=== PATIENT | male | born 1960 | race Caucasian/White ===

== ENCOUNTER 2019-03-10 22:02 | Inpatient (IN) | payer OTHER ==
[2019-03-10] MEDS ORDERED: Acetaminophen 650 MG Suppository PR PRN (23:28)
[2019-03-10] MEDS ORDERED: Ondansetron PF 4 MG/2 ML Vial IVP PRN (23:28)
[2019-03-10] MEDS ORDERED: Sodium Chloride 0.9% 1,000 ML IV SCH (23:30)
[2019-03-10 23:33] LABS: Actual Bicarbonate (HCO3a) 18.8 mEq/L (22-28); Base Excess (BEa) -5.6 mEq/L (-2.0 to +3.0); CO2 Tension 32.6 mmHg (35.0-45.0); Hemoglobin (Hb) 9.8 g/dL (14.0-18.0); O2 Tension (PaO2) 87.7 mmHg (80.0-100.0); pH, Arterial 7.38 (7.35-7.45)
[2019-03-10 23:34] LABS: Calcium, Ionized 1.25 mmol/L (1.12-1.30); Potassium - ABG Lab 3.08 mmol/L (3.70-5.30); Puncture Site ALINE
[2019-03-10] MEDS ORDERED: Lorazepam 2 MG/ML VIAL SLOW IVP PRN (23:36)
--- NOTE | 2019-03-10 23:47 | PDOC.EVN ---
Event Note - Event Note Event Note: [id number] H&P dictated
[2019-03-11] MEDS ORDERED: Cefepime 2 GM in Sodium Chloride 0.9% 100 ML IVPB SCH (00:15)
[2019-03-11] MEDS ORDERED: Vancomycin HCl 1 GM in Premix Bag 1 BAG IVPB SCH (00:30)
[2019-03-11] MEDS ORDERED: fentaNYL Citrate/PF 2,000 MCG in Sodium Chloride 0.9% 60 ML IV SCH (00:50)
[2019-03-11] MEDS ORDERED: Morphine 2 MG/ML SYRINGE SLOW IVP PRN (00:50)
[2019-03-11] MEDS ORDERED: Lorazepam 2 MG/ML VIAL SLOW IVP PRN (00:50)
[2019-03-11] MEDS ORDERED: Fentanyl BOLUS 250 ML IVPB PRN (00:50)
[2019-03-11] MEDS ORDERED: Propofol BOLUS 1,000 MG/100 ML VIAL IV PRN (00:50)
[2019-03-11] MEDS ORDERED: Propofol 1,000 MG/100 ML VIAL IV PRN (00:50)
--- NOTE | 2019-03-11 01:37 | HP ---
CHIEF COMPLAINT: Seizures and altered mental status. HISTORY OF PRESENT ILLNESS: Mr. 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 Today, the patient developed seizures, for which he was given Ativan and Dilantin and was intubated for airway protection. Requested to transfer the patient to our facility for further management. Reviewing the records, the patient's blood cultures growing E coli, the patient has received 4 units of packed RBCs, the latest hemoglobin is 9.7. WBC count today is 15.7, platelets 645. INR is 1.1. Glucose is 230 and BUN is 11, creatinine 0.6. CT of the head showed no acute finding. Also, blood cultures growing MSSA. No further history can be obtained due to the patient's underlying medical condition. PAST MEDICAL HISTORY: Limited. The only thing I can find in the records is the patient has a history of CVA. PAST SURGICAL HISTORY: Unknown. FAMILY HISTORY: Unknown. CURRENT MEDICATIONS: Please see home medication reconciliation form for updated medications. SOCIAL HISTORY: Unknown. ALLERGIES: UNKNOWN. REVIEW OF SYSTEMS: Cannot obtain. The patient currently is intubated on the vent, unresponsive. PHYSICAL EXAMINATION: GENERAL: The patient is intubated, not responding. HEAD: Normocephalic, atraumatic. NECK: Supple. No JVD. CHEST: Fair bilateral air entry. HEART: S1, S2 regular. ABDOMEN: Soft. Bowel sounds present. NEUROLOGIC: The patient is not responding, not moving his right side, which is ?old. PSYCHIATRIC: Unable to assess. EXTREMITIES: No clubbing, or cyanosis. LABORATORY DATA: Labs as mentioned above in the history of present illness. CT of the brain, as mentioned above in the history of present illness. ASSESSMENT: 1. Seizures, new onset. 2. Acute respiratory failure, the patient was intubated for airway protection. 3. Gram-negative bacteremia, Escherichia coli in the blood. 4. Methicillin-sensitive Staphylococcus aureus in the blood. 5. Hyperglycemia. PLAN: 1. Admit to ICU. 2. Keep n.p.o. 3. Continue full ventilator support. 4. We will start the patient on antiseizure medication, the patient was loaded with Dilantin at [place]. 5. IV fluids. 6. We will start IV antibiotics to cover for E coli and MSSA. 7. Start the patient on IV proton pump inhibitor. The patient was admitted with a hemoglobin of 4, etiology is not clear. 8. Stool for occult blood. 9. I would consider getting a CT of the abdomen to rule out pathology and cause of anemia? 10. To consult Pulmonary, Neurology, and possible GI in a.m. for further management. 11. Deep venous thrombosis prophylaxis, SCDs. 12. Gastrointestinal prophylaxis. IV proton pump inhibitor. 13. Expected length of stay 3 midnights or more. Job ID: [id number]
[2019-03-11 02:03] LABS: Bilirubin Negative (Negative); Blood, Urine 2+ (Negative); Clarity Turbid (Clear); Glucose, Urine (Dipstick) Normal (Negative); Leukocyte 75 Leu/uL (Negative); Mucous/LPF Rare LPF (<2+); Nitrite Negative (Negative); Protein, Urine (Dipstick) 70 mg/dL (Neg-Trace); RBC/HPF Greater than 50 HPF (0-3); Squamous Epithelial 0-3 HPF (0-3); Urobilinogen Normal mg/dL (Less than 2)
[2019-03-11 02:06] LABS: Bacteria/HPF 1+ HPF (None Seen)
[2019-03-11 06:40] LABS: #Lymphocytes 0.8 thou/uL (1.20-3.40); #Monocytes 0.8 thou/uL (0.11-0.59); #Neutrophils 15.6 thou/uL (1.40-6.50); %Lymphocytes 4.5 % (21.0-51.0); %Monocytes 4.7 % (0.0-10.0); %Neutrophils 90.7 % (42.0-75.0); Anisocytosis SLIGHT = 6-15 cells (100X) (0-5/hpf); Hemoglobin 8.9 g/dL (14.0-18.0); Hypochromia SLIGHT = 6-15 cells (100X) (0-5/hpf); MDiff Complete? YES; Mean Corpuscular HGB CONC 30.2 g/dL (32.0-36.0); Mean Corpuscular Hemoglobin 22.9 pg (27.0-31.0); Mean Corpuscular Volume 75.8 fL (78.0-98.0); Mean Platelet Volume 7.5 fL (7.4-10.4); Microcytosis SLIGHT = 6-15 cells (100X) (0-5/hpf); Platelet Count 595 thou/uL (130-400); Platelet Morphology Comment Appears Increased; RBC Distribution Width 23.8 % (11.5-14.5); White Blood Cell (WBC) Count 17.2 thou/uL (4.8-10.8)
[2019-03-11 06:42] LABS: ALT (SGPT) 12 U/L (8-55); AST (SGOT) 13 U/L (5-34); Albumin 3.1 g/dL (3.5-5.0); Alkaline Phosphatase 88 U/L (40-150); Anion Gap 12 mmol/L (10-20); BUN (Urea Nitrogen) 9 mg/dL (8.4-25.7); Bilirubin, Total 0.7 mg/dL (0.2-1.2); Calc. Creatinine Clearance 120 mL/min (70-130); Carbon Dioxide 22 mmol/L (22-29); Chloride 100 mmol/L (98-107); Estimated GFR-MDRD Greater than 90; Glucose 112 mg/dL (70-105); Protein, Total 6.1 g/dL (6.0-8.3); Sodium 131 mmol/L (136-145)
[2019-03-11 06:45] LABS: Potassium 2.9 mmol/L (3.5-5.1)
[2019-03-11] MEDS ORDERED: CCU Electrolyte Replacement 1 EACH FS ONE (06:51)
[2019-03-11 06:54] LABS: Actual Bicarbonate (HCO3a) 19.6 mEq/L (22-28); Base Excess (BEa) -2.9 mEq/L (-2.0 to +3.0); CO2 Tension 26.8 mmHg (35.0-45.0); Calcium, Ionized 1.24 mmol/L (1.12-1.30); Carboxyhemoglobin (COHb) 0.9 gm% (0.0-3.0); Hemoglobin (Hb) 9.6 g/dL (14.0-18.0); O2 Tension (PaO2) 160.1 mmHg (80.0-100.0); Potassium - ABG Lab 3.05 mmol/L (3.70-5.30); pH, Arterial 7.48 (7.35-7.45)
[2019-03-11] MEDS ORDERED: Potassium Phosphate 15 MMOL in Sodium Chloride 0.9% 250 ML 250 ML IV PRN (06:54)
[2019-03-11] MEDS ORDERED: Magnesium Oxide 400 MG TAB PO PRN ×2 (06:54)
[2019-03-11] MEDS ORDERED: Potassium Chloride 20 MEQ TAB PO PRN (06:54)
[2019-03-11] MEDS ORDERED: Potassium Phosphate 9 MMOL in Sodium Chloride 0.9% 100 ML IVPB PRN (06:54)
[2019-03-11] MEDS ORDERED: Potassium Chloride 40 MEQ in Sodium Chloride 0.9% 250 ML 250 ML IVPB PRN (06:54)
[2019-03-11] MEDS ORDERED: Magnesium 2 GM/50 ML 2 GM in Premix Bag 1 BAG IVPB PRN (06:54)
[2019-03-11] MEDS ORDERED: Potassium Phosphate 12 MMOL in Sodium Chloride 0.9% 250 ML 250 ML IV PRN (06:54)
[2019-03-11] MEDS ORDERED: PHOS-NAK 1 PKT PACK PO PRN ×2 (06:54)
[2019-03-11 07:28] LABS: Phosphorus 2.7 mg/dL (2.3-4.7)
[2019-03-11] MEDS: Pantoprazole 40 MG VIAL IVP SCH ×2 (08:56→20:35)
[2019-03-11] MEDS: Potassium Chloride 40 MEQ in Premix Bag 1 BAG IVPB PRN ×2 (09:00→20:00)
[2019-03-11] MEDS ORDERED: Fosphenytoin Sodium 100 MG in Sodium Chloride 0.9% 50 ML IVPB SCH (09:00)
--- NOTE | 2019-03-11 09:53 | PDOC.HOSPP ---
- Subjective Encounter Date: 03/11/19 Encounter Time: 09:51 Subjective: Mr. Figueroa was seen today in follow-up of acute Seizure, and severe anemia. He is currently inutbated. He will open his eyes but he does not follow commands. - Objective Vital Signs & Weight: Vital Signs (12 hours) Temp Pulse Resp BP Pulse Ox 03/11/19 09:12 89 03/11/19 08:00 98.5 F 03/11/19 07:28 80 114/81 03/11/19 06:00 18 03/11/19 04:00 98.4 F 18 03/11/19 03:43 81 03/11/19 02:00 18 03/11/19 00:00 98.0 F 18 03/10/19 23:37 18 03/10/19 23:10 79 107/79 03/10/19 23:00 98.0 F 03/10/19 22:37 100 Weight Weight 125 lb 10.616 oz Most Recent Monitor Data Heart Rate from ECG 90 NIBP 114/75 NIBP BP-Mean 88 Respiration from ECG 18 SpO2 100 I&O: 03/10/19 03/11/19 03/12/19 06:59 06:59 06:59 Intake Total 570 0 Output Total 158 75 Balance 412 -75 Result Diagrams: 03/11/19 06:10 03/11/19 06:10 Hospitalist ROS - Medication Medications: Active Medications Generic Name Dose Route Start Last Admin Trade Name Freq PRN Reason Stop Dose Admin Fosphenytoin Sodium 100 mg/ 52 mls @ 100 mls/hr 03/11/19 09:00 03/11/19 08:55 Sodium Chloride IVPB 52 mls Q12HR TORIBIO Administration Potassium Chloride 40 meq/ 100 mls @ 50 mls/hr 03/11/19 06:54 03/11/19 09:00 Device IVPB 100 mls ASDIR PRN Administration FOR SERUM K+ 2.5 - 3.5 Pantoprazole Sodium 40 mg 03/11/19 09:00 03/11/19 08:56 Protonix IVP 40 mg Q12HR TORIBIO Administration - Exam Eye: PERRL, anicteric sclera ENT: normocephalic atraumatic, no oropharyngeal lesions Heart: RRR, no murmur, no gallops, no rubs, normal peripheral pulses Respiratory: CTAB, no wheezes, no rales, no ronchi, normal chest expansion Gastrointestinal: soft, non-tender, normal bowel sounds, no palpable masses, no hepatomegaly, no splenomegaly, distended (tympanic to percussion) Extremities: no cyanosis, no clubbing, 1+ LE edema (trace pedal edema,) Skin: normal turgor, no lesions, no rashes Neurological: hemiplegia (right) Hosp A/P (1) Seizure Code(s): R56.9 - UNSPECIFIED CONVULSIONS Status: Acute (2) Respiratory failure, acute Code(s): J96.00 - ACUTE RESPIRATORY FAILURE, UNSP W HYPOXIA OR HYPERCAPNIA Status: Acute (3) Microcytic anemia Code(s): D50.9 - IRON DEFICIENCY ANEMIA, UNSPECIFIED Status: Acute (4) Pneumonia, aspiration Code(s): J69.0 - PNEUMONITIS DUE TO INHALATION OF FOOD AND VOMIT Status: Acute (5) CVA, old, hemiparesis Code(s): I69.359 - HEMIPLGA FOLLOWING CEREBRAL INFARCTION AFFECTING UNSP SIDE Status: Chronic (6) Hypokalemia Code(s): E87.6 - HYPOKALEMIA Status: Acute - Plan * Acute new onset Seizures- ? etiology- CT scan of the brain from [place] was negative- continue Fosphenytoin IV * He is intubated for airway protection * Consult Neurology * Anemia- initially severe, he has been transfused 4 untis of Packed RBC's. I can not tell if anemia studies have been done, ( from review of the records from [place]) therefore will order these, and check stool for occult blood- may need GI consult if appropriate * Continue Protonix Q 12 * DVT prophylaxis with SCD's only * Healthcare associated pneumonia- continue Cefepime and Vancomycin- Blood cultures from [facility] growing MSSA, and Ecoli * Hypokalemia- replace
[2019-03-11 10:43] LABS: Iron 14 ug/dL (65-175); Iron Binding Capacity, Total 298 mcg/dL (261-462)
[2019-03-11] MEDS: Cefepime 2 GM in Sodium Chloride 0.9% 100 ML IVPB SCH ×2 (13:00→23:30)
[2019-03-11] MEDS: Vancomycin HCl 1 GM in Premix Bag 1 BAG IVPB SCH (14:08)
[2019-03-11] MEDS ORDERED: Bupivacaine/Epinephrine 0.25% 30 ML VIAL ONE (15:33)
[2019-03-11 16:58] LABS: Puncture Site RBA
[2019-03-11] MEDS: Sodium Chloride 0.9% 1,000 ML IV SCH ×2 (17:02→20:35)
--- NOTE | 2019-03-11 17:05 | CON ---
DATE OF CONSULTATION: 03/11/2019 CONSULTING PHYSICIAN: Hospitalist Service. IMPRESSION: 1. Recurrent seizure. 2. Prior stroke with right hemiparesis. 3. Acute respiratory failure secondary to the seizure. 4. Possible sepsis. 5. Anemia. PLAN: 1. Continue Dilantin 300 mg per day. 2. Extubate if able. HISTORY OF PRESENT ILLNESS: Mr. Figueroa is a 58-year-old man with reported history of a prior stroke and seizures. He presented to [facility] with witnessed seizure. He had a CT scan of the brain, which reportedly did not show any acute changes. He was transferred here for care. He was intubated and placed on the ventilator. He has failed to regain alertness. There is no other history available. His lab work showed a significantly low hematocrit and elevated white count suggestive of possible sepsis. He has been started on a loading dose of fosphenytoin. No other history is available. PAST MEDICAL HISTORY: Otherwise unknown. FAMILY HISTORY: Unknown. ALLERGIES: UNKNOWN. MEDICATIONS: Reviewed. REVIEW OF SYSTEMS: Not obtainable due to his current level of consciousness. PHYSICAL EXAMINATION: GENERAL: He is a thin middle-aged man, on ventilatory support. VITAL SIGNS: Stable. He is afebrile. HEENT: Resists eye opening. He is orally intubated. Cranium is normocephalic and atraumatic. NECK: No lymphadenopathy noted. EXTREMITIES: No cyanosis or edema. NEUROLOGIC: He awakens to stimulation, but will not maintain alertness. I could not get him to follow any commands. His face is grossly symmetric. Motor exam showed increased tone on the right side with distal weakness of the hand in particular. He does not move the right leg as much to stimulation as he does the left. Plantar responses are downgoing bilaterally. No abnormal movements are seen. Gait is not testable. SUMMARY: He is a middle-aged male with a recurrent seizure, likely secondary to his old stroke damage. I agree with current treatment plan. We will follow up on his course. Job ID: [id number]
--- NOTE | 2019-03-11 17:35 | CON ---
DATE OF CONSULTATION: 03/11/2019 HISTORY OF PRESENT ILLNESS: Henry is a 58-year-old male, who was admitted for seizures, required intubation. He was transferred from [place]. Apparently, he has been in the hospital for several days in [place] with severe anemia and also bacteremia. He was subsequently transferred here. He has never been hospitalized here in the recent past, reviewing records. FAMILY HISTORY: Unknown. SOCIAL HISTORY: Unknown. REVIEW OF SYSTEMS: Unobtainable. The patient is intubated. PHYSICAL EXAMINATION: VITAL SIGNS: Heart rate is 83, it is in sinus rhythm; blood pressure 115/83; respiratory rate is 20; and oximetry is 100%. HEENT: Pupils react. Sclerae are anicteric. NECK: Supple without lymphadenopathy. LUNGS: Clear anteriorly. HEART: Regular rhythm. S1 and S2 are normal. ABDOMEN: Soft without masses. EXTREMITIES: Without asymmetry. LABORATORY DATA: Sodium 131, potassium 3.9, chloride 100, bicarb 22, BUN 9, creatinine 0.5, glucose 112, and albumin is 3.1. Blood gas; pH of 7.38, CO2 of 32, and pO2 of 87, ventilatory rate has been turned down. White count 17.2, hemoglobin 8.9, and platelets 595. IMPRESSION: 1. History of cerebrovascular accident. 2. Seizure disorder. 3. Coli bacteremia. It is noted the patient will have chest x-ray here. I have to get x-rays and lab in the morning. Hopefully, he will wake up enough to be extubated tomorrow. Critical care time is 35 minutes. Job ID: [id number] MTDD
[2019-03-11] MEDS ORDERED: SUGAMMADEX SODIUM 200 MG/2 ML VIAL ONE ×2 (18:34→18:46)
[2019-03-11 19:48] LABS: Potassium 2.9 mmol/L (3.5-5.1)
[2019-03-11] MEDS: Fosphenytoin Sodium 100 MG in Sodium Chloride 0.9% 50 ML IVPB SCH (22:00)
[2019-03-12 00:51] LABS: Potassium 2.9 mmol/L (3.5-5.1)
[2019-03-12] MEDS: Vancomycin HCl 1 GM in Premix Bag 1 BAG IVPB SCH ×2 (00:55→13:15)
[2019-03-12] MEDS: Potassium Chloride 40 MEQ in Premix Bag 1 BAG IVPB PRN ×2 (00:55→05:25)
[2019-03-12 04:42] LABS: Anion Gap 10 mmol/L (10-20); BUN (Urea Nitrogen) 6 mg/dL (8.4-25.7); Calc. Creatinine Clearance 141 mL/min (70-130); Calcium 8.8 mg/dL (7.8-10.44); Carbon Dioxide 20 mmol/L (22-29); Chloride 106 mmol/L (98-107); Estimated GFR-MDRD Greater than 90; Glucose 82 mg/dL (70-105); Potassium 3.4 mmol/L (3.5-5.1); Sodium 133 mmol/L (136-145)
[2019-03-12 04:59] LABS: Anisocytosis SLIGHT = 6-15 cells (100X) (0-5/hpf); Band 3 % (5-11); Elliptocytes SLIGHT = 2-5 cells (100X) (0-1/hpf); Hemoglobin 9.2 g/dL (14.0-18.0); Hypochromia SLIGHT = 6-15 cells (100X) (0-5/hpf); Lymphocytes 4 % (21-51); MDiff Complete? YES; Mean Corpuscular HGB CONC 30.4 g/dL (32.0-36.0); Mean Corpuscular Hemoglobin 23.2 pg (27.0-31.0); Mean Corpuscular Volume 76.2 fL (78.0-98.0); Mean Platelet Volume 7.7 fL (7.4-10.4); Monocytes 1 % (0-10); Neutrophil 92 % (42-75); Platelet Count 596 thou/uL (130-400); RBC Distribution Width 24.3 % (11.5-14.5); Red Blood Cell (RBC) Count 3.97 mill/uL (4.70-6.10); White Blood Cell (WBC) Count 16.3 thou/uL (4.8-10.8)
[2019-03-12] MEDS: Sodium Chloride 0.9% 1,000 ML IV SCH ×2 (05:09→16:19)
[2019-03-12] MEDS: Fosphenytoin Sodium 100 MG in Sodium Chloride 0.9% 50 ML IVPB SCH ×3 (05:25→21:49)
[2019-03-12 06:51] LABS: ALV-art Gradient 155.825 (0-20); Actual Bicarbonate (HCO3a) 18.4 mEq/L (22-28); Base Excess (BEa) -4.5 mEq/L (-2.0 to +3.0); CO2 Tension 26.7 mmHg (35.0-45.0); Calcium, Ionized 1.27 mmol/L (1.12-1.30); Hemoglobin (Hb) 9.5 g/dL (14.0-18.0); Potassium - ABG Lab 3.84 mmol/L (3.70-5.30); Puncture Site RBA; pH, Arterial 7.46 (7.35-7.45)
--- NOTE | 2019-03-12 08:33 | RAD ---
CHEST 1 VIEW: Date: 03/12/19 INDICATION: History of intubation. COMPARISON: None. FINDINGS: Patient is intubated with ET tube seen at the thoracic inlet. There is a right IJ central venous cath eter projecting in the region of the cavoatrial junction. There is suggestion of some mild to moderat e cardiomegaly. Visualized lungs are clear. No definite pneumothorax is evident. There is gaseous dis tention of colon underling the right hemidiaphragm, as well as upper mid abdomen. No definite acute o sseous abnormality is evident. There is some limitations of exam due to rotation of the patient to th e left. IMPRESSION: 1. Mild to moderate cardiomegaly. 2. Tubes and lines as above. 3. No definite pneumothorax is demonstrated. 4. Gaseous distention of bowel within the upper abdomen. POS: BH
[2019-03-12] MEDS: Pantoprazole 40 MG VIAL IVP SCH ×2 (08:57→21:49)
[2019-03-12] MEDS ORDERED: HumaLOG 300 UNITS/3 ML VIAL SC PRN ×2 (09:45)
[2019-03-12] MEDS ORDERED: Dextrose 5% in Water 1,000 ML IV PRN (09:45)
--- NOTE | 2019-03-12 11:42 | PDOC.HOSPP ---
- Subjective Encounter Date: 03/12/19 Encounter Time: 11:37 Subjective: Mr. Figueroa was seen today in follow-up of seizure. He is intubated, but responsive. He follows commands. - Objective Vital Signs & Weight: Vital Signs (12 hours) Temp Pulse Resp BP Pulse Ox 03/12/19 10:36 86 118/79 03/12/19 10:00 17 03/12/19 09:20 87 03/12/19 08:58 85 03/12/19 08:00 16 100 03/12/19 07:14 91 117/74 03/12/19 07:00 98.5 F 03/12/19 06:00 17 03/12/19 04:00 19 03/12/19 03:00 98.1 F 03/12/19 02:00 15 03/12/19 00:00 15 Weight Admit Weight 125 lb Weight 125 lb 10.616 oz Most Recent Monitor Data Heart Rate from ECG 90 NIBP 118/79 NIBP BP-Mean 92 Respiration from ECG 16 SpO2 99 I&O: 03/11/19 03/12/19 03/13/19 06:59 06:59 06:59 Intake Total 570 2511 Output Total 158 700 200 Balance 412 1811 -200 Result Diagrams: 03/12/19 04:00 03/12/19 04:00 Hospitalist ROS - Medication Medications: Active Medications Generic Name Dose Route Start Last Admin Trade Name Freq PRN Reason Stop Dose Admin Cefepime HCl 2 gm/ Sodium 100 mls @ 200 mls/hr 03/11/19 12:00 03/11/19 23:30 Chloride IVPB 100 mls 1200,2359 TORIBIO Administration Vancomycin HCl 1 gm/ Device 200 mls @ 133.333 mls/hr 03/11/19 13:00 03/12/19 00:55 IVPB 200 mls 0100,1300 TORIBIO Administration Potassium Chloride 40 meq/ 100 mls @ 50 mls/hr 03/11/19 06:54 03/12/19 05:25 Device IVPB 100 mls ASDIR PRN Administration FOR SERUM K+ 2.5 - 3.5 Sodium Chloride 1,000 mls @ 100 mls/hr 03/11/19 09:41 03/12/19 05:09 Normal Saline 0.9% IV Not Given .Q10H TORIBIO Fosphenytoin Sodium 100 mg/ 52 mls @ 100 mls/hr 03/11/19 22:00 03/12/19 05:25 Sodium Chloride IVPB 52 mls Q8HR TORIBIO Administration Pantoprazole Sodium 40 mg 03/11/19 09:00 03/12/19 08:57 Protonix IVP 40 mg Q12HR TORIBIO Administration - Exam Eye: PERRL, anicteric sclera Neck: supple, symmetric, no JVD, no thyromegaly, no lymphadenopathy Heart: RRR, no murmur, no gallops, no rubs, normal peripheral pulses Respiratory: CTAB, no wheezes, no rales, no ronchi, normal chest expansion, no tachypnea, normal percussion Gastrointestinal: soft, non-tender, non-distended, normal bowel sounds, no palpable masses, no hepatomegaly Extremities: no cyanosis, no clubbing, no edema Hosp A/P (1) Seizure Code(s): R56.9 - UNSPECIFIED CONVULSIONS Status: Acute (2) Respiratory failure, acute Code(s): J96.00 - ACUTE RESPIRATORY FAILURE, UNSP W HYPOXIA OR HYPERCAPNIA Status: Acute (3) Microcytic anemia Code(s): D50.9 - IRON DEFICIENCY ANEMIA, UNSPECIFIED Status: Acute (4) Pneumonia, aspiration Code(s): J69.0 - PNEUMONITIS DUE TO INHALATION OF FOOD AND VOMIT Status: Acute (5) CVA, old, hemiparesis Code(s): I69.359 - HEMIPLGA FOLLOWING CEREBRAL INFARCTION AFFECTING UNSP SIDE Status: Chronic (6) Hypokalemia Code(s): E87.6 - HYPOKALEMIA Status: Acute - Plan * Seizure- apparently he has a history for seizures before- await Neurology evaluation * Continue to wean as tolerated * Anemia- iron studies are consistent with iron deficiency- once he is extubated , can consider GI evaluation * Continue Protonix Q 12 * DVT prophylaxis with SCD's only * Healthcare associated pneumonia- continue Cefepime and Vancomycin- Blood cultures from [facility] growing MSSA, and Ecoli * Hypokalemia- continue to replace
[2019-03-12 12:20] LABS: Vancomycin, Trough 16.3 ug/mL
[2019-03-12] MEDS: Cefepime 2 GM in Sodium Chloride 0.9% 100 ML IVPB SCH ×2 (12:42→23:37)
--- NOTE | 2019-03-12 13:12 | PRG ---
DATE OF SERVICE: 03/12/2019 SUBJECTIVE: Mr. Figueroa is clinically stable. Spontaneous breathing trial was started this morning. He will awake and follow commands. OBJECTIVE: VITAL SIGNS: Blood pressure 118/79, heart rate 86, respiratory rates in the teens. LUNGS: Clear. HEART: Regular rhythm. ABDOMEN: Soft. EXTREMITIES: Without edema. LABORATORY DATA: White count 16.3, hemoglobin 9.2, platelets 596. Sodium 133, potassium 3.4, chloride 106, bicarb 20, BUN 6, creatinine 0.46, pH 7.46, CO2 of 26, PO2 of 96. IMPRESSION: 1. Respiratory failure, status post intubation for seizures. 2. Bacteremia in [place] with Escherichia coli, likely of urinary tract origin. 3. History of a cerebrovascular accident in the past. Chest x-ray from today was reviewed. I see no infiltrates. He is probably a candidate for extubation if he passes spontaneous breathing trial. Critical care time is 35 minutes. Job ID: [id number] MTDD
[2019-03-12] MEDS: Dextrose 50% Abboject 50 ML SYRINGE SLOW IVP PRN (18:33)
[2019-03-13] MEDS: Dextrose 50% Abboject 50 ML SYRINGE SLOW IVP PRN (00:11)
[2019-03-13] MEDS: Vancomycin HCl 1 GM in Premix Bag 1 BAG IVPB SCH ×2 (01:12→12:49)
[2019-03-13] MEDS: Sodium Chloride 0.9% 1,000 ML IV SCH ×2 (01:14→12:48)
[2019-03-13 04:37] LABS: Anion Gap 12 mmol/L (10-20); BUN (Urea Nitrogen) Less than 4 mg/dL (8.4-25.7); Calc. Creatinine Clearance 152 mL/min (70-130); Calcium 8.4 mg/dL (7.8-10.44); Carbon Dioxide 20 mmol/L (22-29); Chloride 106 mmol/L (98-107); Estimated GFR-MDRD Greater than 90; Glucose 75 mg/dL (70-105); Sodium 135 mmol/L (136-145)
[2019-03-13 04:49] LABS: Potassium 2.5 mmol/L (3.5-5.1)
[2019-03-13] MEDS: Potassium Chloride 40 MEQ in Premix Bag 1 BAG IVPB PRN ×2 (04:51→10:33)
[2019-03-13 04:58] LABS: Anisocytosis SLIGHT = 6-15 cells (100X) (0-5/hpf); Band 2 % (5-11); Hemoglobin 9.1 g/dL (14.0-18.0); Hypochromia SLIGHT = 6-15 cells (100X) (0-5/hpf); Lymphocytes 3 % (21-51); MDiff Complete? YES; Mean Corpuscular HGB CONC 30.9 g/dL (32.0-36.0); Mean Corpuscular Hemoglobin 23.2 pg (27.0-31.0); Mean Corpuscular Volume 75.3 fL (78.0-98.0); Mean Platelet Volume 7.8 fL (7.4-10.4); Microcytosis SLIGHT = 6-15 cells (100X) (0-5/hpf); Monocytes 5 % (0-10); Neutrophil 90 % (42-75); Platelet Count 485 thou/uL (130-400); White Blood Cell (WBC) Count 11.8 thou/uL (4.8-10.8)
[2019-03-13] MEDS: Fosphenytoin Sodium 100 MG in Sodium Chloride 0.9% 50 ML IVPB SCH ×3 (05:27→22:08)
--- NOTE | 2019-03-13 06:56 | RAD ---
CHEST 1 VIEW: Date: 03/13/19 INDICATION: CCU examination with history of intubation. COMPARISON: Prior exam dated 03/12/19. FINDINGS: Patient has been intervally extubated. Mild cardiomegaly is stable. Right IJ central venous catheter is stable. Lungs are clear. No pleural effusion or pneumothorax evident. Gaseous distention of bowel within the upper abdomen appears similar. IMPRESSION: Interval extubation. Stable cardiomegaly. POS: BH
[2019-03-13] MEDS: Pantoprazole 40 MG VIAL IVP SCH ×2 (09:47→22:03)
[2019-03-13 10:01] LABS: Magnesium 1.6 mg/dL (1.6-2.6)
[2019-03-13 10:13] LABS: Potassium 2.8 mmol/L (3.5-5.1)
[2019-03-13] MEDS: Cefepime 2 GM in Sodium Chloride 0.9% 100 ML IVPB SCH (12:28)
[2019-03-13 12:57] VITALS: BMI 17.2
[2019-03-13] MEDS ORDERED: Potassium Chloride 40 MEQ in Premix Bag 1 BAG IVPB SCH (13:00)
[2019-03-13] MEDS ORDERED: Enoxaparin Sodium 40 MG/0.4 ML SYRINGE SC SCH (13:30)
--- NOTE | 2019-03-13 15:59 | PRG ---
DATE OF SERVICE: 03/13/2019 SUBJECTIVE: Ryan Figueroa opens his eyes. He is in no distress. He is handling his secretions adequately at this time. OBJECTIVE: VITAL SIGNS: Blood pressure is 103/76, heart rate 86, respiratory rate 19. LUNGS: Remarkable for mild rhonchi. HEART: Regular rhythm. S1 and S2 are normal. ABDOMEN: Soft. EXTREMITIES: Without edema. LABORATORY DATA: White count 11.8, hemoglobin 9.1, platelets 485. Sodium 135, potassium 2.5, chloride 106, bicarb 20, BUN less than 4, creatinine 0.43. IMPRESSION: 1. Respiratory failure after status epilepticus. 2. Escherichia coli bacteremia, likely from his urinary tract. 3. One reported Staph blood culture this is unclear. Vancomycin will be discontinued since this is oxacillin-sensitive Staph. He probably will have to be treated presumably for endocarditis given his blood cultures were positive. There is no clear source, although his prognosis is dismal. He also had Staph isolated in his urine when he got here. Blood culture from two days ago, still growing Staph as was the 03/07 culture, so given the persistent positivity of this, he most likely has endocarditis. His prognosis is quite guarded. Job ID: [id number]
--- NOTE | 2019-03-13 18:39 | PDOC.HOSPP ---
- Subjective Encounter Date: 03/13/19 Encounter Time: 11:35 Subjective: 58 y/o male with right hemiparesis and aphasia from prior cva, seizure disorder , admitted with recurrent seizures and respiratory failure requiring intubation. Also found to have E coli and MSSA bacteremia. Extubated. Patient is also legally blind. - Objective Vital Signs & Weight: Vital Signs (12 hours) Temp Pulse Resp BP Pulse Ox 03/13/19 16:14 97.0 F L 79 20 102/78 97 03/13/19 16:00 96 03/13/19 12:00 98 F 03/13/19 08:00 98.4 F 03/13/19 07:50 98 Weight Admit Weight 125 lb Weight 126 lb 8.725 oz Most Recent Monitor Data Heart Rate from ECG 83 NIBP 112/75 NIBP BP-Mean 87 Respiration from ECG 4 SpO2 93 I&O: 03/12/19 03/13/19 03/14/19 06:59 06:59 06:59 Intake Total 2511 2389 1872 Output Total 700 2305 1045 Balance 1811 84 827 Result Diagrams: 03/13/19 03:45 03/13/19 09:32 Additional Labs: Accuchecks 03/13/19 03/13/19 03/13/19 18:23 12:32 05:31 POC Glucose 104 79 74 03/12/19 23:39 POC Glucose 63 L Hospitalist ROS - Medication Medications: Active Medications Generic Name Dose Route Start Last Admin Trade Name Freq PRN Reason Stop Dose Admin Dextrose/Water 25 gm 03/12/19 09:45 03/13/19 00:11 Dextrose 50% SLOW IVP 25 gm PRN PRN Administration Hypoglycemia Cefepime HCl 2 gm/ Sodium 100 mls @ 200 mls/hr 03/11/19 12:00 03/13/19 12:28 Chloride IVPB 100 mls 1200,2359 TORIBIO Administration Potassium Chloride 40 meq/ 100 mls @ 50 mls/hr 03/11/19 06:54 03/13/19 10:33 Device IVPB 100 mls ASDIR PRN Administration FOR SERUM K+ 2.5 - 3.5 Magnesium Sulfate 1 gm/ Sodium 102 mls @ 102 mls/hr 03/11/19 06:54 03/13/19 14:27 Chloride IV 102 mls PRN PRN Administration MAG LEVEL 1.4 - 2.0 Sodium Chloride 1,000 mls @ 100 mls/hr 03/11/19 09:41 03/13/19 12:48 Normal Saline 0.9% IV 1,000 mls .Q10H TORIBIO Administration Fosphenytoin Sodium 100 mg/ 52 mls @ 100 mls/hr 03/11/19 22:00 03/13/19 13:17 Sodium Chloride IVPB 52 mls Q8HR TORIBIO Administration Pantoprazole Sodium 40 mg 03/11/19 09:00 03/13/19 09:47 Protonix IVP 40 mg Q12HR TORIBIO Administration - Exam General Appearance: awake alert General - other findings: non verbal Eye - other findings: Legally blind Neck: no JVD Heart: RRR Gastrointestinal: soft, normal bowel sounds Extremities: no edema Neurological - other findings: Right facial droop, R hemiparesis with fixed flexion deformity Musculoskeletal - other findings: Obeys some imple command Hosp A/P (1) Recurrent seizures Code(s): G40.909 - EPILEPSY, UNSP, NOT INTRACTABLE, WITHOUT STATUS EPILEPTICUS Status: Acute (2) MSSA bacteremia Code(s): R78.81 - BACTEREMIA Status: Acute (3) E coli bacteremia Code(s): R78.81 - BACTEREMIA Status: Acute (4) UTI (urinary tract infection) Status: Acute (5) Hypokalemia Code(s): E87.6 - HYPOKALEMIA Status: Acute (6) Pneumonia, aspiration Code(s): J69.0 - PNEUMONITIS DUE TO INHALATION OF FOOD AND VOMIT Status: Acute (7) Respiratory failure, acute Code(s): J96.00 - ACUTE RESPIRATORY FAILURE, UNSP W HYPOXIA OR HYPERCAPNIA Status: Acute (8) CVA, old, hemiparesis Code(s): I69.359 - HEMIPLGA FOLLOWING CEREBRAL INFARCTION AFFECTING UNSP SIDE Status: Chronic - Plan Continue broad spectrum antibiotics. Antiepileptic as per Neurology Continue supportive care Follow blood cultures.
[2019-03-13 21:32] LABS: Potassium 3.3 mmol/L (3.5-5.1)
[2019-03-14] MEDS: Cefepime 2 GM in Sodium Chloride 0.9% 100 ML IVPB SCH (00:18)
[2019-03-14] MEDS: Sodium Chloride 0.9% 1,000 ML IV SCH ×2 (02:30→10:01)
[2019-03-14] MEDS: Fosphenytoin Sodium 100 MG in Sodium Chloride 0.9% 50 ML IVPB SCH ×3 (05:12→21:07)
[2019-03-14 05:50] LABS: Band 1 % (5-11); Hemoglobin 8.8 g/dL (14.0-18.0); Hypochromia MODERATE=16-30 cells (100X) (0-5/hpf); Lymphocytes 10 % (21-51); MDiff Complete? YES; Mean Corpuscular HGB CONC 29.7 g/dL (32.0-36.0); Mean Corpuscular Hemoglobin 22.3 pg (27.0-31.0); Mean Corpuscular Volume 75.2 fL (78.0-98.0); Mean Platelet Volume 8.3 fL (7.4-10.4); Monocytes 5 % (0-10); Neutrophil 84 % (42-75); Ovalocytes SLIGHT = 2-5 cells (100X) (0-1/hpf); Platelet Count 416 thou/uL (130-400); Platelet Morphology Comment Appears Increased; RBC Distribution Width 25.1 % (11.5-14.5); Red Blood Cell (RBC) Count 3.95 mill/uL (4.70-6.10)
[2019-03-14 05:54] LABS: Anion Gap 13 mmol/L (10-20); BUN (Urea Nitrogen) 4 mg/dL (8.4-25.7); Calc. Creatinine Clearance 142 mL/min (70-130); Calcium 7.9 mg/dL (7.8-10.44); Carbon Dioxide 15 mmol/L (22-29); Chloride 112 mmol/L (98-107); Estimated GFR-MDRD Greater than 90; Glucose 76 mg/dL (70-105); Magnesium 1.8 mg/dL (1.6-2.6); Potassium 3.7 mmol/L (3.5-5.1); Sodium 136 mmol/L (136-145)
--- NOTE | 2019-03-14 09:06 | RAD ---
PORTABLE CHEST: Date: 03/14/19 HISTORY: Respiratory distress. COMPARISON: Prior day's exam. FINDINGS: Heart size is enlarged. Right-sided central line is again noted. The lungs are clear of infiltrates. There is some gaseous distention of the colon. IMPRESSION: Mild cardiomegaly. Essentially stable chest. POS: TPC
[2019-03-14] MEDS: Sodium Bicarbonate Tab 325 MG TAB PO SCH ×3 (10:03→20:57)
[2019-03-14] MEDS: Pantoprazole 40 MG VIAL IVP SCH ×2 (10:09→20:58)
[2019-03-14] MEDS: Enoxaparin Sodium 40 MG/0.4 ML SYRINGE SC SCH (10:09)
[2019-03-14] MEDS: cefTRIAXone\\ROCEPHIN 2 GM in Sodium Chloride 0.9% 100 ML IVPB SCH (10:14)
--- NOTE | 2019-03-14 12:01 | PDOC.HOSPP ---
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 Also found to have E coli and MSSA bacteremia. Extubated and doing well. Patient is also legally blind. Nods to questions - Objective Vital Signs & Weight: Vital Signs (12 hours) Temp Pulse Resp BP Pulse Ox 03/14/19 11:52 98 F 74 20 111/75 96 03/14/19 08:40 96 03/14/19 07:29 98 F 79 20 99/79 96 03/14/19 03:56 97.1 F L 73 16 113/86 96 03/14/19 00:00 97.3 F L 74 18 108/76 98 Weight Admit Weight 125 lb Weight 126 lb 8.725 oz Most Recent Monitor Data Heart Rate from ECG 83 NIBP 112/75 NIBP BP-Mean 87 Respiration from ECG 4 SpO2 93 I&O: 03/13/19 03/14/19 03/15/19 06:59 06:59 06:59 Intake Total 2389 1872 300 Output Total 2305 1650 Balance 84 222 300 Result Diagrams: 03/14/19 05:01 03/14/19 05:01 Additional Labs: Accuchecks 03/14/19 03/14/19 03/13/19 10:24 06:17 20:06 POC Glucose 76 78 86 03/13/19 03/13/19 18:23 12:32 POC Glucose 104 79 Hospitalist ROS - Medication Medications: Active Medications Generic Name Dose Route Start Last Admin Trade Name Freq PRN Reason Stop Dose Admin Dextrose/Water 25 gm 03/12/19 09:45 03/13/19 00:11 Dextrose 50% SLOW IVP 25 gm PRN PRN Administration Hypoglycemia Enoxaparin Sodium 40 mg 03/14/19 09:00 03/14/19 10:09 Lovenox SC 40 mg 0900 TORIBIO Administration Potassium Chloride 40 meq/ 100 mls @ 50 mls/hr 03/11/19 06:54 03/13/19 10:33 Device IVPB 100 mls ASDIR PRN Administration FOR SERUM K+ 2.5 - 3.5 Magnesium Sulfate 1 gm/ Sodium 102 mls @ 102 mls/hr 03/11/19 06:54 03/13/19 14:27 Chloride IV 102 mls PRN PRN Administration MAG LEVEL 1.4 - 2.0 Sodium Chloride 1,000 mls @ 100 mls/hr 03/11/19 09:41 03/14/19 10:01 Normal Saline 0.9% IV 1,000 mls .Q10H TORIBIO Administration Fosphenytoin Sodium 100 mg/ 52 mls @ 100 mls/hr 03/11/19 22:00 03/14/19 05:12 Sodium Chloride IVPB 52 mls Q8HR TORIBIO Administration Ceftriaxone Sodium 2 gm/ 100 mls @ 200 mls/hr 03/14/19 08:15 03/14/19 10:14 Sodium Chloride IVPB 100 mls Q24HR TORIBIO Administration Pantoprazole Sodium 40 mg 03/11/19 09:00 03/14/19 10:09 Protonix IVP 40 mg Q12HR TORIBIO Administration Sodium Bicarbonate 650 mg 03/14/19 09:00 03/14/19 10:03 Bicarbonate, Sodium PO 650 mg TID TORIBIO Administration - Exam General Appearance: awake alert Eye: anicteric sclera ENT: normocephalic atraumatic Heart: RRR, murmur present Respiratory: no wheezes, no ronchi Respiratory - other findings: fair air entry with some transmitted sound. Gastrointestinal: soft, non-tender, non-distended, normal bowel sounds Extremities: no cyanosis, no edema Neurological: no new deficit, hemiplegia Neurological - other findings: Right sided hemiparesis with fixed flexion deformity. Aphasic Hosp A/P (1) MSSA bacteremia Code(s): R78.81 - BACTEREMIA Status: Acute (2) E coli bacteremia Code(s): R78.81 - BACTEREMIA Status: Acute (3) Recurrent seizures Code(s): G40.909 - EPILEPSY, UNSP, NOT INTRACTABLE, WITHOUT STATUS EPILEPTICUS Status: Acute (4) UTI (urinary tract infection) Status: Acute (5) Hypokalemia Code(s): E87.6 - HYPOKALEMIA Status: Acute (6) Pneumonia, aspiration Code(s): J69.0 - PNEUMONITIS DUE TO INHALATION OF FOOD AND VOMIT Status: Acute (7) Respiratory failure, acute Code(s): J96.00 - ACUTE RESPIRATORY FAILURE, UNSP W HYPOXIA OR HYPERCAPNIA Status: Acute (8) CVA, old, hemiparesis Code(s): I69.359 - HEMIPLGA FOLLOWING CEREBRAL INFARCTION AFFECTING UNSP SIDE Status: Chronic (9) Decubitus ulcer of sacral region, unstageable Code(s): L89.150 - PRESSURE ULCER OF SACRAL REGION, UNSTAGEABLE Status: Acute (10) Microcytic anemia Code(s): D50.9 - IRON DEFICIENCY ANEMIA, UNSPECIFIED Status: Acute - Plan Antibiotic changed to Rocephin 2 gram IV daily in line with susceptibility Get Echo given murmur and bacteremia Antiepileptic as per Neurology Continue supportive care Follow blood cultures. Get repeat blood culture to ascertain clearance Consult ID to help with treatment
[2019-03-14] MEDS ORDERED: ISOVUE-370 76%-LOCM 1 ML ONE (12:03)
--- NOTE | 2019-03-14 22:44 | CT ---
CT of the chest, abdomen, and pelvis: 03/14/2019 COMPARISON: None HISTORY: Elevated white blood cell count, evaluate for infection TECHNIQUE: Axial CT imaging at 5 mm intervals from the lung apices through the pubic symphysis with I V contrast. Coronal reformatted imaging obtained. FINDINGS: No axillary, hilar, or mediastinal lymphadenopathy. No endobronchial lesion is seen. Multiple scattered small pulmonary nodules are noted within the left upper lobe measuring up to 8 mm. Similar scattered pulmonary nodules within the left lower lobe measure up to 9 mm. Multiple subcentimeter pulmonary nodules within the right upper lobe present measuring up to 7 mm. No free intraperitoneal air is seen. The liver contains numerous irregular mass lesions highly suspicious for metastatic disease. The left lobe of the liver is nearly completely replaced with mass lesions, which measure up to 9.5 cm in transverse dimension. The largest lesion within the right lobe of the liver is seen inferiorly measur ing at least 5.2 cm. The spleen is grossly unremarkable. The gallbladder is poorly assessed. The pancreas appears unremarkable. The adrenal glands and the kidneys are unremarkable. The lack of oral contrast media limits assessment of the bowel. There may be wall thickening of the d istal rectum on axial image 116. The colon appears diffusely moderately distended and contains fluid from the level of the proximal descending colon through the sigmoid colon. This is secondary to a irregular mass lesion within the proximal a sending colon, best seen on axial image 84 which measures 6.8 cm in transverse dimension and involves a segment of the colon measuring approximately 7 -8 cm in length. This demonstrates an apple core configuration on coronal imaging, highly suspicious for colon cancer. There is a probable enlarged regional lymph node within the adjacent mes enteric fat of the right lower quadrant on image 85 measuring 8 mm. The vascular structures of the abdomen/pelvis appear patent. There is probable stenosis at the origin of the celiac axis with poststenotic dilatation or aneurysm measuring 1.7 cm in transverse dimension. No retroperitoneal lymphadenopathy is apparent. Diffuse stranding of the subcutaneous fat suggests a degree of anasarca. The bones appear somewhat demineralized. No discrete focal lytic or blastic bone lesion. Given findin gs within the chest, abdomen, and pelvis, a follow-up bone scan may be beneficial to evaluate for osseous metastatic disease. Gas is seen within the urinary bladder, suggesting fistulous communication with bowel or recent instr umentation. IMPRESSION: Numerous bilateral pulmonary nodules, multiple masses within the liver, and large irregul ar mass lesion in the region of the ascending colon, highly suspicious for colon cancer with metastatic disease. Probable regional lymphadenopathy within the right lower quadrant mesentery. Focus of gas within the urinary bladder as above.
[2019-03-14 23:16] LABS: Magnesium 1.7 mg/dL (1.6-2.6); Potassium 3.2 mmol/L (3.5-5.1)
[2019-03-14] MEDS ORDERED: Potassium Chloride 20 MEQ TAB PO SCH (23:30)
--- NOTE | 2019-03-15 01:43 | CON ---
DATE OF CONSULTATION: 03/14/2019 REASON FOR CONSULTATION: Bacteremia. HISTORY OF PRESENT ILLNESS: A 58-year-old patient, first admission to this hospital, who was transferred from [place], who had been admitted on March 07 and he was admitted to [facility] from [facility] because of low hemoglobin. There is a history of prior CVA according to the records from [facility] and a history of pneumonia. He appears as having been catheterized in [place]. Another diagnosis that appears in the list of problems from the other hospitals physician's documentation is status epilepticus and acute constipation. There is a CT of head which was without acute process and a chest x-ray, which did not show any infiltrates. He did have an abnormal appearance of the right glenoid and humeral neck with periosteal reaction, and shoulder MRI was recommended. The patient had another episode of seizures in [place] and had to be intubated and then at that moment, he was transferred for higher level of care. I tried to contact the [facility] and was not able to get hold of anybody there in the number provided. When he was admitted on the , his vital signs were not stated in the admitting note. In the record, he remained afebrile and in this hospital stay thus far and his blood pressure has ranged from 90/70 to 102/78, his pulse has remained normal, and his O2 sats ranging from 98 to 100. Currently, Mr. Figueroa has his eyes open. He will establish eye contact briefly and he seems to nod to questions, but that is pretty much the only reply that I get from him. He is unable to communicate verbally. Did not follow any commands. PAST MEDICAL HISTORY: Quite limited. According to the note from [facility], he has history of seizures and prior CVA and history of pneumonia as well. He had an indwelling Strickland catheter in [facility]. FAMILY HISTORY: Unknown family history. CURRENT MEDICATION LIST: Includes: 1. Ceftriaxone. 2. Dextrose. 3. Fentanyl. 4. Ondansetron. SOCIAL HISTORY: Not available. ALLERGIES: UNKNOWN. PHYSICAL EXAMINATION: VITAL SIGNS: Current vital signs, temperature 98.3, blood pressure 108/79, pulse 68, respirations 20, O2 saturation 98. SKIN: With areas of shallow stage II presacral ulceration irregular shaped about 3 x 5 cm in diameter without any inflammatory changes surrounding the area. HEENT: His ocular movements appear conjugate. Conjunctivae somewhat pale. He did not open his mouth. Could not evaluate his oral cavity. Ear and nasal examination normal. NECK: Appears supple. He has quite a bit of wasting in the musculature of the neck and temporal area and subcutaneous tissue as well. No jugular vein distention. LUNGS: Symmetric air entry, although breath sounds are quite shallow and diminished. I did not perceive any evidence of inspiratory crackles or wheezing. HEART: Showed markedly diminished heart sounds. I can barely hear S1 and S2, but no murmurs were noted. ABDOMEN: Scaphoid without any organomegaly or distention. No ascites. No bladder distention. GENITAL: Examination was evaluated and no inflammatory changes are noted. He has marked wasting syndrome in the upper and lower extremities. He is able to move his upper extremities, but is diffusely weak. His lower extremities, I could not demonstrate any spontaneous motion. Plantar responses are indifferent. Pulses are 1+ in dorsalis pedis. He has a central line in the right IJ position, could not evaluate his cognitive function. He basically does not interact verbally with the examiner. Does not follow commands. LABORATORY DATA: His white cell count is 17,000 on arrival, now is 14,000. Hemoglobin 8.9 and 8.8. Platelets 595 and 416, with a predominance of mature neutrophils. Arterial blood gas; pH 7.38, pCO2 of 32, PO2 of 87. Sodium 136, creatinine 0.46. Liver profile normal. Ferritin 16, iron was 14, albumin 3.1. Urinalysis with 11-20 wbc's, greater than 50 rbc's. Vancomycin trough 16. Microbiology with 2 sets of blood cultures from 03/11, positive for Staphylococcus aureus which is methicillin sensitive strain. A third set with both Staph aureus and E coli retrieved. In those initial sets, there was no evidence that urine culture was submitted. There is a chest x-ray from today which showed mild cardiomegaly , clear lungs of infiltrates, gaseous distention of the colon. ASSESSMENT: 1. History of prior cerebrovascular accident, seizure activity. 2. Severe anemia with microcytosis and iron deficiency, but no evidence of bleeding. 3. Malnutrition. 4. Polymicrobial bacteremia with Escherichia coli and methicillin-sensitive Staphylococcus aureus. DISCUSSION: Differential diagnosis includes an intraabdominal inflammatory process, particularly urinary tract related. Possibility of obstructive uropathy, renal abscess with pyonephrosis is considered. Endocarditis is another possibility, although less likely in view of polymicrobial nature of the bacteremia. Splenic abscess is a consideration. An osteomuscular inflammatory process with septic arthritis, spinal infection is also another consideration. We will start evaluation with CT of the chest, abdomen and pelvis with contrast and continue Rocephin until further evaluation is available. The patient had an echocardiogram which showed some liver nodules by serendipitously, but no valvular vegetation noted. KATELYNN might be needed depending on findings in the CT scans. Palliative, hospice care would be an option without further work up but there is disagreement among family members for now. Job ID: [id number] MTDD
[2019-03-15 05:11] LABS: Hypochromia SLIGHT = 6-15 cells (100X) (0-5/hpf); Lymphocytes 4 % (21-51); MDiff Complete? YES; Mean Corpuscular Hemoglobin 23.6 pg (27.0-31.0); Mean Corpuscular Volume 78.6 fL (78.0-98.0); Mean Platelet Volume 8.1 fL (7.4-10.4); Neutrophil 96 % (42-75); Platelet Count 433 thou/uL (130-400); Platelet Morphology Comment Appears Increased; RBC Distribution Width 25.2 % (11.5-14.5); Red Blood Cell (RBC) Count 3.83 mill/uL (4.70-6.10); White Blood Cell (WBC) Count 12.2 thou/uL (4.8-10.8)
[2019-03-15 05:21] LABS: Anion Gap 12 mmol/L (10-20); BUN (Urea Nitrogen) 4 mg/dL (8.4-25.7); Calc. Creatinine Clearance 156 mL/min (70-130); Calcium 7.9 mg/dL (7.8-10.44); Carbon Dioxide 17 mmol/L (22-29); Chloride 111 mmol/L (98-107); Estimated GFR-MDRD Greater than 90; Glucose 68 mg/dL (70-105); Potassium 3.8 mmol/L (3.5-5.1); Sodium 136 mmol/L (136-145)
[2019-03-15] MEDS: Fosphenytoin Sodium 100 MG in Sodium Chloride 0.9% 50 ML IVPB SCH ×3 (06:13→23:50)
[2019-03-15] MEDS: cefTRIAXone\\ROCEPHIN 2 GM in Sodium Chloride 0.9% 100 ML IVPB SCH (10:20)
[2019-03-15] MEDS: Enoxaparin Sodium 40 MG/0.4 ML SYRINGE SC SCH (10:21)
[2019-03-15] MEDS: Pantoprazole 40 MG VIAL IVP SCH ×2 (10:22→23:46)
[2019-03-15] MEDS: Sodium Bicarbonate Tab 325 MG TAB PO SCH ×3 (10:22→23:46)
--- NOTE | 2019-03-15 15:35 | PDOC.HOSPP ---
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 Also found to have E coli and MSSA bacteremia. Patient is also legally blind. Patient is stable post extubation. Aphasic and nods to questions. Oral intake is suboptimal. Afebrile. - Objective Vital Signs & Weight: Vital Signs (12 hours) Temp Pulse Resp BP Pulse Ox 03/15/19 11:28 98.1 F 80 18 117/82 97 03/15/19 07:47 98.2 F 69 14 107/79 94 L 03/15/19 04:07 95 03/15/19 04:00 98.4 F 72 14 113/88 100 Weight Admit Weight 125 lb Weight 126 lb 8.725 oz Most Recent Monitor Data Heart Rate from ECG 83 NIBP 112/75 NIBP BP-Mean 87 Respiration from ECG 4 SpO2 93 I&O: 03/14/19 03/15/19 03/16/19 06:59 06:59 06:59 Intake Total 1872 500 175 Output Total 1650 Balance 222 500 175 Result Diagrams: 03/15/19 04:53 03/15/19 04:53 Additional Labs: Accuchecks 03/15/19 03/15/19 03/14/19 10:56 06:04 19:30 POC Glucose 71 68 L 77 03/14/19 16:19 POC Glucose 71 Hospitalist ROS - Medication Medications: Active Medications Generic Name Dose Route Start Last Admin Trade Name Freq PRN Reason Stop Dose Admin Acetaminophen 650 mg 03/10/19 23:28 03/14/19 12:58 Tylenol [place] 650 mg Q4H PRN Administration Headache/Fever/Mild Pain (1-3) Dextrose/Water 25 gm 03/12/19 09:45 03/13/19 00:11 Dextrose 50% SLOW IVP 25 gm PRN PRN Administration Hypoglycemia Enoxaparin Sodium 40 mg 03/14/19 09:00 03/15/19 10:21 Lovenox SC 40 mg 0900 TORIBIO Administration Potassium Chloride 40 meq/ 100 mls @ 50 mls/hr 03/11/19 06:54 03/13/19 10:33 Device IVPB 100 mls ASDIR PRN Administration FOR SERUM K+ 2.5 - 3.5 Magnesium Sulfate 1 gm/ Sodium 102 mls @ 102 mls/hr 03/11/19 06:54 03/13/19 14:27 Chloride IV 102 mls PRN PRN Administration MAG LEVEL 1.4 - 2.0 Fosphenytoin Sodium 100 mg/ 52 mls @ 100 mls/hr 03/11/19 22:00 03/15/19 06:13 Sodium Chloride IVPB 52 mls Q8HR TORIBIO Administration Ceftriaxone Sodium 2 gm/ 100 mls @ 200 mls/hr 03/14/19 08:15 03/15/19 10:20 Sodium Chloride IVPB 100 mls Q24HR TORIBIO Administration Ondansetron HCl 4 mg 03/10/19 23:28 03/14/19 18:03 Zofran IVP 4 mg Q6H PRN Administration Nausea/Vomiting Pantoprazole Sodium 40 mg 03/11/19 09:00 03/15/19 10:22 Protonix IVP 40 mg Q12HR TORIBIO Administration Sodium Bicarbonate 650 mg 03/14/19 09:00 03/15/19 10:22 Bicarbonate, Sodium PO 650 mg TID TORIBIO Administration - Exam General Appearance: awake alert General - other findings: chronically ill looking, afebrile Eye: anicteric sclera ENT: normocephalic atraumatic Neck - other findings: Right IJ TLC noted Heart: RRR Respiratory - other findings: fair air entry bilaterally Gastrointestinal: soft, non-tender, non-distended, normal bowel sounds Extremities: no cyanosis, no edema Neurological: no new deficit Neurological - other findings: Non verbal. Musculoskeletal: generalized weakness, diffuse muscle atrophy Hosp A/P (1) MSSA bacteremia Code(s): R78.81 - BACTEREMIA Status: Acute (2) E coli bacteremia Code(s): R78.81 - BACTEREMIA Status: Acute (3) Recurrent seizures Code(s): G40.909 - EPILEPSY, UNSP, NOT INTRACTABLE, WITHOUT STATUS EPILEPTICUS Status: Acute (4) UTI (urinary tract infection) Status: Acute (5) Hypokalemia Code(s): E87.6 - HYPOKALEMIA Status: Acute (6) Pneumonia, aspiration Code(s): J69.0 - PNEUMONITIS DUE TO INHALATION OF FOOD AND VOMIT Status: Acute (7) Respiratory failure, acute Code(s): J96.00 - ACUTE RESPIRATORY FAILURE, UNSP W HYPOXIA OR HYPERCAPNIA Status: Acute (8) CVA, old, hemiparesis Code(s): I69.359 - HEMIPLGA FOLLOWING CEREBRAL INFARCTION AFFECTING UNSP SIDE Status: Chronic (9) Decubitus ulcer of sacral region, unstageable Code(s): L89.150 - PRESSURE ULCER OF SACRAL REGION, UNSTAGEABLE Status: Acute (10) Microcytic anemia Code(s): D50.9 - IRON DEFICIENCY ANEMIA, UNSPECIFIED Status: Acute (11) Colonic mass Code(s): K63.89 - OTHER SPECIFIED DISEASES OF INTESTINE Status: Acute (12) Liver masses Code(s): R16.0 - HEPATOMEGALY, NOT ELSEWHERE CLASSIFIED Status: Acute (13) Pulmonary nodules/lesions, multiple Status: Acute - Plan Continue Rocephin 2 gram IV daily in line with susceptibility Antiepileptic as per Neurology Consult GI for evaluation of colon mass associated with liver and lung nodules Consult Palliative care to help with complex decision making. Patient is aphasic and no relative around. Continue supportive care
[2019-03-15] MEDS ORDERED: GoLYTELY 4,000 ml Bottle PO SCH (19:30)
--- NOTE | 2019-03-15 23:24 | CON ---
DATE OF CONSULTATION: 03/15/2019 REASON FOR CONSULTATION: Abnormal GI imaging showing a probable ascending colonic mass. CONSULTING PROVIDER: Andria Jaime Obi, MD. HISTORY OF PRESENT ILLNESS: The patient is a 58-year-old male with past medical history of cerebrovascular accident, seizures, and legal blindness, who initially presented to [facility] after documentation of a seizure as an outpatient. Most of the information obtained was through chart review given the patient's aphasic status, although he was able to contribute to the conversation today as well to supplement the information already obtained. Per chart review the patient was admitted to the [facility] on 03/07 for a low hemoglobin and during the course of the hospitalization there developed sudden onset seizures and was ultimately admitted for airway protection. He was then subsequently transferred to our facility for further management. During the course of the hospitalization here, he was noted to have blood cultures that were positive for E. coli for which he was adequately treated for the last few days. However also noted within the blood cultures was the presence of both E. coli and methicillin sensitive Staph aureus and with this polymicrobial infection was concerning for possible GI origin. CT of the abdomen and pelvis was obtained on 03/14/2019, which then showed a possible ascending colonic mass concerning for malignant neoplasm. Today, the patient states that he is improving and feeling better, but does continue to have some increased left lower quadrant abdominal pain that has been present for at least the last 2 to 3 days. He characterizes it as a stabbing type pain, is intermittent and will last for minutes to hours in duration, is nonradiating and reaches a severity of 6-7/10. The pain is worse with certain twisting movements and pressure to the left lower quadrant, but denies any alleviating factors at this time. He denies any associated symptoms that occur with the abdominal pain and currently denies any nausea, vomiting, fevers, chills, hematemesis, melena, hematochezia, dysphagia, odynophagia, diarrhea, or constipation. During the course of the interview, the patient was able to respond to simple questions and commands and was able to contribute to the conversation somewhat with slurred speech and slowed thought processes. REVIEW OF SYSTEMS: A 10-category review of systems could not be effectively obtained due to the patient's slowed cognition and garbled speech except for the pertinent positives as listed in HPI above. PAST MEDICAL HISTORY: Cerebral vascular accident, seizure disorder, legal blindness, and history of pneumonia. PAST SURGICAL HISTORY: Unknown. FAMILY HISTORY: Unknown. SOCIAL HISTORY: Unknown. OUTPATIENT MEDICATIONS: Reviewed. ALLERGIES: NO KNOWN DRUG ALLERGIES. PHYSICAL EXAMINATION: VITAL SIGNS: Temperature 98.9, pulse 79, blood pressure 110/80, respiratory rate 16, saturating 95% on room air. GENERAL: The patient was lying in bed, in no acute distress. Alert and oriented x2. HEENT: Normocephalic, atraumatic. NECK: Supple. No JVD or scleral icterus noted. CARDIOVASCULAR: Regular rate and rhythm, but a 3/6 systolic murmur was heard at the left lower sternal border within the midclavicular line. RESPIRATORY: Clear to auscultation bilaterally with no discernible wheezes or rales. ABDOMEN: Normoactive bowel sounds. Soft, nontender, nondistended. EXTREMITIES: No cyanosis, clubbing, or edema. LABORATORY DATA: CBC with a white blood cell count of 12.2, hemoglobin 9, hematocrit 30.1, platelets 433. Chemistry with a sodium of 136, potassium 3.8, chloride 111, CO2 of 17, BUN 4, creatinine 0.42, glucose 68, AST 13, ALT 12, alkaline phosphatase 88, total bilirubin 0.7. Iron 14, ferritin 16, TIBC 298. Microbiology showed blood cultures x2 obtained on 03/13 is negative. Infectious stool workup was negative thus far for C. diff, E.coli, Campylobacter, Salmonella, Shigella and stool culture was positive for yeast species. IMAGING DATA: CT of the abdomen and pelvis was obtained on 03/14/2019, which showed multiple scattered small pulmonary nodules within the left upper lobe measuring up to 8 mm. Multiple scattered pulmonary nodules within the left lower lobe and right upper lobe were also seen measuring up to 9 mm in size. The liver also contained numerous irregular mass lesions measuring up to 9.5 cm in transverse dimension. There was also possible wall thickening of the distal rectum, but an irregular mass lesion was also seen in the proximal ascending colon measuring 7 to 8 cm in length and did exhibit regional lymphadenopathy. ASSESSMENT AND PLAN: The patient is a 58-year-old male with past medical history of cerebral vascular accident, seizures, legal blindness, and history of pneumonia, presenting with polymicrobial bacteremia and abnormal gastrointestinal imaging concerning for a colonic primary malignancy. Bacteremia/abnormal gastrointestinal imaging: The patient was initially admitted to [facility] for evaluation of increasing seizures. During the course of that hospitalization, the seizures worsened and he was ultimately intubated for airway protection. After being transferred to [facility], blood cultures were positive for Escherichia coli and methicillin-susceptible Staphylococcus aureus with the yarsanism of this polymicrobial bacteremia is strongly concerning for possible gastrointestinal origin. CT of the abdomen and pelvis was obtained on 03/14/2019, which showed multiple scattered pulmonary nodules, but also numerous irregular masses within the liver measuring up to 9.5 cm as well as a regular mass lesion in the proximal ascending colon concerning for primary colonic malignancy. Given the current imaging findings and the polymicrobial bacteremia, it is consistent with a gastrointestinal malignancy and a metastatic one of that. I would recommend a colonoscopy for further evaluation and biopsies obtained within this region as well. RECOMMENDATIONS: 1. We would place the patient on a clear liquid diet today with a GoLYTELY prep tonight in anticipation for colonoscopy. 2. We will plan for a colonoscopy tomorrow for intraluminal evaluation and possible biopsy of an ascending colonic malignancy. 3. Agree with antibiotic therapy as per Infectious Disease Service for treatment of his polymicrobial bacteremia. Given the increased likelihood of metastatic disease to both the liver and the lungs, given the patient's current functional status, a palliative care consult is not reasonable. 4. We will continue to follow. Please call with any questions. Job ID: [id number]
[2019-03-16 04:57] LABS: Band 1 % (5-11); Elliptocytes SLIGHT = 2-5 cells (100X) (0-1/hpf); Hemoglobin 8.9 g/dL (14.0-18.0); Hypochromia SLIGHT = 6-15 cells (100X) (0-5/hpf); Lymphocytes 9 % (21-51); MDiff Complete? YES; Mean Corpuscular HGB CONC 30.3 g/dL (32.0-36.0); Mean Corpuscular Hemoglobin 23.3 pg (27.0-31.0); Mean Platelet Volume 8.1 fL (7.4-10.4); Microcytosis SLIGHT = 6-15 cells (100X) (0-5/hpf); Monocytes 5 % (0-10); Neutrophil 85 % (42-75); Platelet Count 444 thou/uL (130-400); Platelet Morphology Comment Appears Increased; Red Blood Cell (RBC) Count 3.82 mill/uL (4.70-6.10); Target Cells SLIGHT = 2-5 cells (100X) (0-1/hpf); White Blood Cell (WBC) Count 10.3 thou/uL (4.8-10.8)
[2019-03-16 04:59] LABS: Anion Gap 13 mmol/L (10-20); BUN (Urea Nitrogen) 6 mg/dL (8.4-25.7); Calc. Creatinine Clearance 149 mL/min (70-130); Carbon Dioxide 20 mmol/L (22-29); Chloride 111 mmol/L (98-107); Estimated GFR-MDRD Greater than 90; Glucose 80 mg/dL (70-105); Sodium 141 mmol/L (136-145)
[2019-03-16 05:03] LABS: Potassium 2.7 mmol/L (3.5-5.1)
[2019-03-16] MEDS ORDERED: Potassium Chloride 40 MEQ in Premix Bag 1 BAG IVPB SCH (06:00)
[2019-03-16] MEDS: Fosphenytoin Sodium 100 MG in Sodium Chloride 0.9% 50 ML IVPB SCH ×3 (06:32→21:35)
[2019-03-16] MEDS: Enoxaparin Sodium 40 MG/0.4 ML SYRINGE SC SCH (08:54)
[2019-03-16] MEDS: Sodium Bicarbonate Tab 325 MG TAB PO SCH ×3 (08:54→21:36)
[2019-03-16 08:59] LABS: Magnesium 1.8 mg/dL (1.6-2.6); Phosphorus 2.3 mg/dL (2.3-4.7)
[2019-03-16] MEDS: cefTRIAXone\\ROCEPHIN 2 GM in Sodium Chloride 0.9% 100 ML IVPB SCH (09:35)
[2019-03-16] MEDS: Pantoprazole 40 MG VIAL IVP SCH ×2 (09:41→21:36)
--- NOTE | 2019-03-16 10:24 | PDOC.HOSPP ---
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 Also found to have E coli and MSSA bacteremia. Patient is also legally blind. Patient is stable post extubation. Aphasic and nods to questions. Awaiting for colonoscopy. - Objective Vital Signs & Weight: Vital Signs (12 hours) Temp Pulse Resp BP Pulse Ox 03/16/19 03:00 99.0 F 76 18 113/77 97 Weight Admit Weight 125 lb Weight 126 lb 8.725 oz Most Recent Monitor Data Heart Rate from ECG 83 NIBP 112/75 NIBP BP-Mean 87 Respiration from ECG 4 SpO2 93 I&O: 03/15/19 03/16/19 03/17/19 06:59 06:59 06:59 Intake Total 500 225 Balance 500 225 Result Diagrams: 03/16/19 04:30 03/16/19 04:30 Additional Labs: Accuchecks 03/16/19 03/16/19 03/15/19 06:45 01:47 16:39 POC Glucose 71 81 82 03/15/19 10:56 POC Glucose 71 Hospitalist ROS - Medication Medications: Active Medications Generic Name Dose Route Start Last Admin Trade Name Freq PRN Reason Stop Dose Admin Acetaminophen 650 mg 03/10/19 23:28 03/14/19 12:58 Tylenol SD 650 mg Q4H PRN Administration Headache/Fever/Mild Pain (1-3) Dextrose/Water 25 gm 03/12/19 09:45 03/13/19 00:11 Dextrose 50% SLOW IVP 25 gm PRN PRN Administration Hypoglycemia Enoxaparin Sodium 40 mg 03/14/19 09:00 03/16/19 08:54 Lovenox SC Not Given 0900 TORIBIO Potassium Chloride 40 meq/ 100 mls @ 50 mls/hr 03/11/19 06:54 03/13/19 10:33 Device IVPB 100 mls ASDIR PRN Administration FOR SERUM K+ 2.5 - 3.5 Magnesium Sulfate 1 gm/ Sodium 102 mls @ 102 mls/hr 03/11/19 06:54 03/13/19 14:27 Chloride IV 102 mls PRN PRN Administration MAG LEVEL 1.4 - 2.0 Fosphenytoin Sodium 100 mg/ 52 mls @ 100 mls/hr 03/11/19 22:00 03/16/19 06:32 Sodium Chloride IVPB 52 mls Q8HR TORIBIO Administration Ceftriaxone Sodium 2 gm/ 100 mls @ 200 mls/hr 03/14/19 08:15 03/16/19 09:35 Sodium Chloride IVPB 100 mls Q24HR TORIBIO Administration Ondansetron HCl 4 mg 03/10/19 23:28 03/14/19 18:03 Zofran IVP 4 mg Q6H PRN Administration Nausea/Vomiting Pantoprazole Sodium 40 mg 03/11/19 09:00 03/16/19 09:41 Protonix IVP 40 mg Q12HR TORIBIO Administration Potassium Chloride 60 meq 03/16/19 09:00 03/16/19 08:53 Klor-Con PO 03/16/19 13:01 60 meq Q4HR TORIBIO Administration Sodium Bicarbonate 650 mg 03/14/19 09:00 03/16/19 08:54 Bicarbonate, Sodium PO 650 mg TID TORIBIO Administration - Exam General - other findings: cachetic. Eye: anicteric sclera ENT: normocephalic atraumatic Neck: symmetric Heart: RRR, murmur present Respiratory: no ronchi Respiratory - other findings: fair air entry Gastrointestinal: soft, non-tender, non-distended, diminished bowl sounds Extremities: no cyanosis, 1+ LE edema Neurological - other findings: mild right lower facial weakness. Right hemiparesis with fixed flexion defo Hosp A/P (1) Colonic mass Code(s): K63.89 - OTHER SPECIFIED DISEASES OF INTESTINE Status: Acute (2) MSSA bacteremia Code(s): R78.81 - BACTEREMIA Status: Acute (3) E coli bacteremia Code(s): R78.81 - BACTEREMIA Status: Acute (4) Recurrent seizures Code(s): G40.909 - EPILEPSY, UNSP, NOT INTRACTABLE, WITHOUT STATUS EPILEPTICUS Status: Acute (5) UTI (urinary tract infection) Status: Acute (6) Hypokalemia Code(s): E87.6 - HYPOKALEMIA Status: Acute (7) Pneumonia, aspiration Code(s): J69.0 - PNEUMONITIS DUE TO INHALATION OF FOOD AND VOMIT Status: Acute (8) Respiratory failure, acute Code(s): J96.00 - ACUTE RESPIRATORY FAILURE, UNSP W HYPOXIA OR HYPERCAPNIA Status: Acute (9) CVA, old, hemiparesis Code(s): I69.359 - HEMIPLGA FOLLOWING CEREBRAL INFARCTION AFFECTING UNSP SIDE Status: Chronic (10) Decubitus ulcer of sacral region, unstageable Code(s): L89.150 - PRESSURE ULCER OF SACRAL REGION, UNSTAGEABLE Status: Acute (11) Microcytic anemia Code(s): D50.9 - IRON DEFICIENCY ANEMIA, UNSPECIFIED Status: Acute (12) Liver masses Code(s): R16.0 - HEPATOMEGALY, NOT ELSEWHERE CLASSIFIED Status: Acute (13) Pulmonary nodules/lesions, multiple Status: Acute - Plan Replete serum potassium. For Colonoscopy. Continue Rocephin 2 gram IV daily Antiepileptic as per Neurology Continue supportive care
[2019-03-16] MEDS: Dextrose 5 % And 0.9 % NaCl 1,000 ML IV SCH (14:17)
--- NOTE | 2019-03-16 19:03 | PRG ---
DATE OF SERVICE: 03/16/2019 REASON FOR CONSULTATION: Abnormal GI imaging showing a probable ascending colonic mass. SUBJECTIVE: The patient was scheduled for colonoscopy earlier today, but per nursing staff, the patient was unable to complete his colonoscopy prep with no bowel movements with administration. Per conferring with the patient's nursing staff on the floor, he was unable to drink increasing amounts of the GoLYTELY and the GoLYTELY had to be spoon-fed to him in order to facilitate administration. He was roughly only able to get 1/2 of the 4 L down before his scheduled colonoscopy earlier this morning. As such, it was canceled for the procedures. Upon talking with the patient later on today, he states that he is still interested in undergoing a colonoscopy for further evaluation of a possible colonic malignancy. He understands that if this is a colon cancer, it will likely need chemotherapy in order to his part of any treatment modality and is prepared to proceed with chemotherapy if that possibility presents itself. I also discussed the placement of an NG tube in order to facilitate the GoLYTELY prep, and he did agree to its placement with removal promptly after completion of the GoLYTELY prep. Otherwise, he states that he is doing well with no other complaints or problems. He currently denies any nausea, vomiting, fevers, chills, abdominal pain, or GI bleeding. OBJECTIVE: VITAL SIGNS: Temperature 98.9, pulse 88, blood pressure 119/82, respiratory rate 16, and saturating 95% on room air. GENERAL: The patient is lying in bed, in no acute distress. Alert and oriented x2 with responses difficult to discern given his aphasic status. CARDIOVASCULAR: Regular rate and rhythm, but with a 3/6 systolic murmur best heard at the left lower sternal border in the midclavicular line. RESPIRATORY: Clear to auscultation bilaterally. ABDOMEN: Normoactive bowel sounds. Soft, nontender, nondistended. EXTREMITIES: No cyanosis, clubbing, or edema. LABORATORY DATA: CBC with a white blood cell count of 10.3, hemoglobin 8.9, hematocrit 29.5, platelets 444. Chemistry with a sodium of 141, potassium 2.7, chloride 111, CO2 20, BUN 6, creatinine 0.44, glucose 80. IMAGING DATA: No current GI imaging is available for review. ASSESSMENT AND PLAN: The patient is a 58-year-old male with past medical history of cerebrovascular accident, seizures, legal blindness, and history of pneumonia, presenting with polymicrobial bacteremia and abnormal GI imaging concerning for a colonic primary malignancy. Bacteremia/abnormal GI imaging: The patient was initially admitted to [facility] for evaluation of seizures, but ultimately transferred to [facility] for further evaluation. Upon evaluation here, blood cultures were positive for Escherichia coli and methicillin-susceptible Staph aureus indicating a polymicrobial bacteremia. Given evidence of these multiple pathogen infections, a GI origin is more likely with a CT of the abdomen and pelvis obtained on March 14, 2019, showing numerous irregular masses within the liver as well as an irregular mass lesion in the proximal ascending colon concerning for a colonic malignancy. At this time, the patient wishes to proceed with full evaluation of this abnormal GI imaging and possible colonic malignancy, and does wish to proceed with chemotherapy if the malignancy discovered at this time. RECOMMENDATIONS: 1. We will place the patient on a clear liquid diet today with GoLYTELY prep tonight in anticipation of colonoscopy. We will place an NG tube to facilitate administration of the GoLYTELY. 2. We will plan for repeat attempted colonoscopy tomorrow. 3. Agree with current antibiotic therapy as per Infectious Disease service. 4. Given the patient's current functional status, increased likelihood of metastatic disease in current social situation, a Palliative Care consult is not unreasonable. We will continue to follow. Please call with any questions. Job ID: [id number]
[2019-03-16] MEDS ORDERED: GoLYTELY 4,000 ml Bottle PER TUBE SCH (20:00)
--- NOTE | 2019-03-16 22:40 | RAD ---
Radiograph of the abdomen: 03/16/2019 HISTORY: Dobbhoff tube FINDINGS: There is marked gaseous distention of bowel in the upper abdomen. This appears similar when compared to a CT performed 03/16/2019. Assessment of the abdomen for free intraperitoneal air and bowel obstruction is markedly limited on this examination secondary to numerous overlying structures external to the patient. There is a Dobbhoff tube extending into the left upper quadrant, likely within the gastric body. IMPRESSION: Dobbhoff tube as above.
[2019-03-17] MEDS ORDERED: GoLYTELY 4,000 ml Bottle PER TUBE SCH (04:00)
[2019-03-17 05:26] LABS: Anion Gap 14 mmol/L (10-20); BUN (Urea Nitrogen) 6 mg/dL (8.4-25.7); Calc. Creatinine Clearance 146 mL/min (70-130); Calcium 8.2 mg/dL (7.8-10.44); Carbon Dioxide 18 mmol/L (22-29); Chloride 115 mmol/L (98-107); Estimated GFR-MDRD Greater than 90; Glucose 89 mg/dL (70-105); Hemoglobin 9.9 g/dL (14.0-18.0); Hypochromia SLIGHT = 6-15 cells (100X) (0-5/hpf); Lymphocytes 2 % (21-51); MDiff Complete? YES; Magnesium 1.7 mg/dL (1.6-2.6); Mean Corpuscular HGB CONC 30.7 g/dL (32.0-36.0); Mean Corpuscular Hemoglobin 23.6 pg (27.0-31.0); Monocytes 1 % (0-10); Neutrophil 97 % (42-75); Phosphorus 2.2 mg/dL (2.3-4.7); Platelet Count 425 thou/uL (130-400); Platelet Morphology Comment Appears Increased; RBC Distribution Width 25.1 % (11.5-14.5); Red Blood Cell (RBC) Count 4.19 mill/uL (4.70-6.10); Sodium 145 mmol/L (136-145); White Blood Cell (WBC) Count 11.2 thou/uL (4.8-10.8)
[2019-03-17 05:35] LABS: Potassium 2.2 mmol/L (3.5-5.1)
[2019-03-17] MEDS: Fosphenytoin Sodium 100 MG in Sodium Chloride 0.9% 50 ML IVPB SCH ×3 (05:42→22:26)
[2019-03-17] MEDS ORDERED: Potassium Chloride 40 MEQ in Premix Bag 1 BAG IVPB SCH (06:30)
[2019-03-17] MEDS: cefTRIAXone\\ROCEPHIN 2 GM in Sodium Chloride 0.9% 100 ML IVPB SCH (08:43)
[2019-03-17] MEDS: Pantoprazole 40 MG VIAL IVP SCH ×2 (08:45→22:26)
[2019-03-17] MEDS: Sodium Bicarbonate Tab 325 MG TAB PO SCH ×3 (09:05→22:26)
[2019-03-17] MEDS: Dextrose 5 % And 0.9 % NaCl 1,000 ML IV SCH (12:31)
[2019-03-17] MEDS ORDERED: GoLYTELY 4,000 ml Bottle PO SCH (13:00)
--- NOTE | 2019-03-17 13:40 | PRG ---
DATE OF SERVICE: 03/17/2019 REASON FOR CONSULTATION: Abnormal GI imaging. SUBJECTIVE: The patient did undergo colonoscopy prep last night with Lena after placement of an NG tube, but was able to tolerate this fairly well. However, upon evaluation of his labs this morning, he was noted to be severely hypokalemic with increased risk of complication, undergoing sedation with this particular electrolyte abnormality. Given this finding anesthesia, was unwilling to proceed with the surgery unless it was emergent. Given the patient's stable status, the procedure was canceled for this morning with plans to possibly proceed tomorrow after aggressive potassium replacement. Otherwise, the patient is doing well and did not endorse any particular problems at the current point in time. Currently, denies any nausea, vomiting, fevers, chills, abdominal pain, or GI bleeding. OBJECTIVE: VITAL SIGNS: Temperature 97.7, pulse 78, blood pressure 121/82, respiratory rate 16, saturating 100% on room air. GENERAL: The patient is lying in bed, in no acute distress. Alert and oriented x2 with responses difficult to discern given his aphasic status. CARDIOVASCULAR: Regular rate and rhythm with a 3/6 systolic murmur best heard at the left lower sternal border in the midclavicular line. RESPIRATORY: Clear to auscultation bilaterally. ABDOMEN: Normoactive bowel sounds. Soft, nontender, nondistended. EXTREMITIES: No cyanosis, clubbing, or edema. LABORATORY DATA: CBC with a white blood cell count 11.2, hemoglobin 9.9, hematocrit 32.2, platelets 425. Chemistry with a sodium of 145, potassium 2.2, chloride 115, CO2 of 18, BUN 6, creatinine 0.45, glucose 89. IMAGING DATA: No current GI imaging is available for review. ASSESSMENT AND PLAN: The patient is a 58-year-old male with past medical history of cerebrovascular accident, seizures, legal blindness, and history of pneumonia, presenting with polymicrobial bacteremia and abnormal GI imaging concerning for colonic primary malignancy. Bacteremia/abnormal GI imaging. The patient is presenting with blood cultures positive for both Escherichia coli and methicillin-susceptible Staph aureus indicating a polymicrobial infection. Given the initial unknown etiology, he underwent CT scan of the abdomen and pelvis on March 14, 2019, which showed numerous irregular masses within the liver as well as an irregular mass lesion within the proximal ascending colon concerning for colonic malignancy. At this point, a colonic malignancy could potentially contribute to polymicrobial illness with colonoscopy indicated at this time for further evaluation. The patient was prepped for the procedure overnight on March 17, 2019, but with his potassium levels being as low as they are, he needs to be sufficiently supplemented/replaced prior to undergoing anesthesia. RECOMMENDATIONS: 1. We will place the patient on a clear liquid diet today with GoLYTELY prep tonight with administration of approximately 2 L overnight to facilitate repeat prep. 2. We will plan for repeat attempt at colonoscopy tomorrow. 3. Antibiotic therapy per Infectious Disease Service. We will continue to follow. Please call with any questions. Job ID: [id number]
--- NOTE | 2019-03-17 14:21 | PDOC.HOSPP ---
- Subjective Subjective: Seen and examined. Denies pain. Had bowel prep via NG tube. However colonoscopy canceled secondary to low potassium. IV and oral potassium being replaced. Patient will plan for colonoscopy tomorrow. - Objective Vital Signs & Weight: Vital Signs (12 hours) Temp Pulse Resp BP Pulse Ox 03/17/19 12:08 97.7 F 78 16 121/82 100 03/17/19 08:00 97.9 F 91 16 102/67 95 03/17/19 04:00 98.2 F 87 16 142/97 H 96 Weight Admit Weight 125 lb Weight 127 lb 1.6 oz Most Recent Monitor Data Heart Rate from ECG 83 NIBP 112/75 NIBP BP-Mean 87 Respiration from ECG 4 SpO2 93 I&O: 03/16/19 03/17/19 03/18/19 06:59 06:59 06:59 Intake Total 225 Balance 225 Result Diagrams: 03/17/19 04:34 03/17/19 04:34 Additional Labs: Accuchecks 03/17/19 03/17/19 03/16/19 13:56 06:10 20:07 POC Glucose 83 89 81 03/16/19 16:54 POC Glucose 78 Hospitalist ROS - Review of Systems All other systems reviewed; all pertinent +/- noted in HPI/Subj - Medication Medications: Active Medications Generic Name Dose Route Start Last Admin Trade Name Freq PRN Reason Stop Dose Admin Acetaminophen 650 mg 03/10/19 23:28 03/14/19 12:58 Tylenol [place] 650 mg Q4H PRN Administration Headache/Fever/Mild Pain (1-3) Dextrose/Water 25 gm 03/12/19 09:45 03/13/19 00:11 Dextrose 50% SLOW IVP 25 gm PRN PRN Administration Hypoglycemia Enoxaparin Sodium 40 mg 03/14/19 09:00 03/16/19 08:54 Lovenox SC Not Given 0900 TORIBIO Fosphenytoin Sodium 100 mg/ 52 mls @ 100 mls/hr 03/11/19 22:00 03/17/19 05:42 Sodium Chloride IVPB 52 mls Q8HR TORIBIO Administration Ceftriaxone Sodium 2 gm/ 100 mls @ 200 mls/hr 03/14/19 08:15 03/17/19 08:43 Sodium Chloride IVPB 100 mls Q24HR TORIBIO Administration Dextrose/Sodium Chloride 1,000 mls @ 50 mls/hr 03/16/19 14:15 03/17/19 12:31 D5 0.9% Ns IV 1,000 mls .Q20H TORIBIO Administration Ondansetron HCl 4 mg 03/10/19 23:28 03/14/19 18:03 Zofran IVP 4 mg Q6H PRN Administration Nausea/Vomiting Pantoprazole Sodium 40 mg 03/11/19 09:00 03/17/19 08:45 Protonix IVP 40 mg Q12HR TORIBIO Administration Sodium Bicarbonate 650 mg 03/14/19 09:00 03/17/19 09:05 Bicarbonate, Sodium PO Not Given TID TORIBIO - Exam General Appearance: NAD Eye: PERRL, anicteric sclera ENT: moist mucosa Neck: supple, symmetric Heart: no murmur, no gallops, no rubs Respiratory: no wheezes, no rales, rhonchi (few scattered) Gastrointestinal: soft, non-tender, non-distended, no guarding, no rigidity Extremities: no edema Skin: no lesions, no rashes Neurological: no new deficit, hemiplegia, vision deficit Musculoskeletal: generalized weakness Psychiatric: flat affect Hosp A/P (1) Colonic mass Code(s): K63.89 - OTHER SPECIFIED DISEASES OF INTESTINE Status: Acute (2) Decubitus ulcer of sacral region, unstageable Code(s): L89.150 - PRESSURE ULCER OF SACRAL REGION, UNSTAGEABLE Status: Chronic (3) E coli bacteremia Code(s): R78.81 - BACTEREMIA Status: Resolved (4) Hypokalemia Code(s): E87.6 - HYPOKALEMIA Status: Acute (5) Liver masses Code(s): R16.0 - HEPATOMEGALY, NOT ELSEWHERE CLASSIFIED Status: Chronic (6) MSSA bacteremia Code(s): R78.81 - BACTEREMIA Status: Resolved (7) Microcytic anemia Code(s): D50.9 - IRON DEFICIENCY ANEMIA, UNSPECIFIED Status: Chronic (8) Pneumonia, aspiration Code(s): J69.0 - PNEUMONITIS DUE TO INHALATION OF FOOD AND VOMIT Status: Acute (9) Pulmonary nodules/lesions, multiple Status: Acute (10) Recurrent seizures Code(s): G40.909 - EPILEPSY, UNSP, NOT INTRACTABLE, WITHOUT STATUS EPILEPTICUS Status: Chronic (11) Respiratory failure, acute Code(s): J96.00 - ACUTE RESPIRATORY FAILURE, UNSP W HYPOXIA OR HYPERCAPNIA Status: Resolved (12) Seizure Code(s): R56.9 - UNSPECIFIED CONVULSIONS Status: Chronic (13) UTI (urinary tract infection) Status: Acute (14) CVA, old, hemiparesis Code(s): I69.359 - HEMIPLGA FOLLOWING CEREBRAL INFARCTION AFFECTING UNSP SIDE Status: Chronic - Plan Plan: gastroenterology consultation, recommendations appreciated neurology consultation, recommendations appreciated colonoscopy was canceled secondary to hypokalemia. Replace potassium with IV and oral. Bowel prep via NG tube continue antibiotics breathing treatments antiepileptic drug per neurology continue other home medications as able
[2019-03-17] MEDS: Enoxaparin Sodium 40 MG/0.4 ML SYRINGE SC SCH (14:28)
[2019-03-18 04:57] LABS: Anion Gap 11 mmol/L (10-20); BUN (Urea Nitrogen) Less than 4 mg/dL (8.4-25.7); Band 2 % (5-11); Calc. Creatinine Clearance 140 mL/min (70-130); Calcium 7.6 mg/dL (7.8-10.44); Carbon Dioxide 20 mmol/L (22-29); Chloride 117 mmol/L (98-107); Estimated GFR-MDRD Greater than 90; Glucose 100 mg/dL (70-105); Hemoglobin 8.8 g/dL (14.0-18.0); Lymphocytes 6 % (21-51); MDiff Complete? YES; Mean Corpuscular HGB CONC 30.1 g/dL (32.0-36.0); Mean Corpuscular Hemoglobin 23.6 pg (27.0-31.0); Mean Corpuscular Volume 78.6 fL (78.0-98.0); Mean Platelet Volume 8.8 fL (7.4-10.4); Monocytes 4 % (0-10); Neutrophil 88 % (42-75); Platelet Count 377 thou/uL (130-400); Platelet Morphology Comment Appears Adequate; RBC Distribution Width 25.7 % (11.5-14.5); Sodium 146 mmol/L (136-145); White Blood Cell (WBC) Count 11.6 thou/uL (4.8-10.8)
[2019-03-18 05:01] LABS: Potassium 1.9 mmol/L (3.5-5.1)
[2019-03-18] MEDS ORDERED: Potassium Chloride 40 MEQ in Premix Bag 1 BAG IVPB SCH ×2 (05:30→09:15)
[2019-03-18] MEDS: Potassium Chloride 20 MEQ TAB PO SCH ×2 (05:39→09:27)
[2019-03-18] MEDS: Fosphenytoin Sodium 100 MG in Sodium Chloride 0.9% 50 ML IVPB SCH ×3 (06:39→21:07)
[2019-03-18] MEDS: Dextrose 5 % And 0.9 % NaCl 1,000 ML IV SCH (06:40)
[2019-03-18] MEDS: cefTRIAXone\\ROCEPHIN 2 GM in Sodium Chloride 0.9% 100 ML IVPB SCH (08:39)
[2019-03-18] MEDS: Pantoprazole 40 MG VIAL IVP SCH ×2 (09:11→21:07)
[2019-03-18] MEDS: Sodium Bicarbonate Tab 325 MG TAB PO SCH ×3 (09:11→21:06)
[2019-03-18] MEDS: Enoxaparin Sodium 40 MG/0.4 ML SYRINGE SC SCH (09:12)
[2019-03-18 10:33] LABS: Anion Gap 15 mmol/L (10-20); BUN (Urea Nitrogen) Less than 4 mg/dL (8.4-25.7); Calc. Creatinine Clearance 140 mL/min (70-130); Calcium 8.1 mg/dL (7.8-10.44); Carbon Dioxide 19 mmol/L (22-29); Chloride 115 mmol/L (98-107); Estimated GFR-MDRD Greater than 90; Glucose 85 mg/dL (70-105); Sodium 147 mmol/L (136-145)
[2019-03-18 10:39] LABS: Albumin 2.7 g/dL (3.5-5.0); Magnesium 1.6 mg/dL (1.6-2.6)
--- NOTE | 2019-03-18 10:42 | CON ---
DATE OF CONSULTATION: 03/18/2019 REQUESTING PHYSICIAN: Karlos Kwan DO REASON FOR CONSULTATION: Severe hypokalemia. HISTORY OF PRESENT ILLNESS: A 58-year-old male with prior CVA associated with right hemiparesis and aphasia, seizure disorder, care home resident, who was admitted with recurrent seizures and respiratory distress requiring intubation. The patient was admitted on March 16 and further evaluation showed E. coli and MSSA bacteremia. Further evaluation of the bacteremia with CT scan of the abdomen, chest, and pelvis showed right colon mass as well as multiple lesions in the liver and lungs. Impression of metastatic colon cancer was made and GI consult was requested for colonoscopy with biopsy for tissue diagnosis. The patient was started on bowel preparation and clear liquid. Oral intake, which was suboptimal and prior to bowel preparation worsened further and patient was noticed to have severe hypokalemia with serum potassium of 1.9 as well as hypernatremia. Calcium also was noted to be low, hence Nephrology consult to help in the evaluation and management. The patient is aphasic and was unable to provide any history. Above history was gleaned from review of medical records. PAST MEDICAL HISTORY: 1. Prior cerebrovascular accident. 2. Seizure disorder. 3. Legally blind. 4. Right-sided hemiparesis. PAST SURGICAL HISTORY: Unknown. FAMILY HISTORY: Unknown. SOCIAL HISTORY: Largely unknown. The patient was residing in a care home prior to this admission. ALLERGIES: UNKNOWN. HOWEVER, REVIEW OF MEDICAL RECORDS SHOWED NO KNOWN DRUG ALLERGY. PRIOR TO HOSPITAL MEDICATIONS INCLUDE THE FOLLOWING. 1. BISACODYL SUPPOSITORY EVERY 3 DAYS. 2. ACETAMINOPHEN Q.6H P.R.N. FOR PAIN. 3. ATIVAN 0.5 MG P.O. Q.6H P.R.N. 4. ONDANSETRON 4 MG Q.6 P.R.N. FOR NAUSEA AND VOMITING. 5. ASPIRIN 81 MG P.O. DAILY. 6. ATORVASTATIN 40 MG P.O. DAILY. 7. DOCUSATE CALCIUM 240 MG P.O. B.I.D. 8. LASIX 20 MG P.O. DAILY. 9. GUAIFENESIN-DEXTROMETHORPHAN 10 ML Q.6 P.R.N. 10. NAMENDA 5 MG P.O. B.I.D. 11. PROTONIX 40 MG P.O. DAILY. 12. POTASSIUM CHLORIDE 10 MEQ P.O. DAILY. 13. PROCHLORPERAZINE 10 MG P.O. B.I.D. P.R.N. 14. ZOLOFT 50 MG P.O. DAILY. 15. TRAMADOL 25 MG P.O. Q.I.D. P.R.N. CURRENT HOSPITAL MEDICATIONS: 1. Ceftriaxone 2 g IV q.24 hours. 2. 5% dextrose in normal saline at 50 mL/h. 3. Fosphenytoin 100 mg q.8h. 4. DuoNeb 3 mL nebulization q.4 hours. 5. Protonix 40 mg IV q.12. 6. Lovenox 40 mg subcutaneously daily. 7. Lorazepam 2 mg slow IV push p.r.n. 8. Acetaminophen 650 mg q.4 p.r.n. for pain. REVIEW OF SYSTEMS: Could not be performed due to the patient's condition. PHYSICAL EXAMINATION: VITAL SIGNS: Temperature 98.2, pulse 88, respiratory rate 16, SpO2 of 96% on room air, blood pressure is 107/72. GENERAL: Chronically ill-looking, cachectic male, in no obvious distress. The patient is nonverbal. HEENT: Normocephalic, atraumatic. Oral mucosa is moist. NECK: Supple with no obvious masses or lymphadenopathy. CARDIOVASCULAR: Regular rhythm and rate with normal heart sounds 1 and 2. RESPIRATORY: Fair air entry bilaterally with some transmitted breath sounds. No obvious rhonchi or crackle was appreciated. GI: Full, soft, nondistended, nontender with normal bowel sounds. EXTREMITIES: Fixed flexion deformity of right wrist and elbow noted. No obvious edema appreciated. INOCULATOR: Conscious and alert. The patient seems to comprehend and nods in agreement. The patient is nonverbal due to prior CVA. Right-sided hemiparesis noted. 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 DIAGNOSTIC DATA: BMP today showed sodium 146, potassium 1.9, chloride 119, CO2 of 20, BUN less than 4, creatinine 0.47, glucose 100, calcium 7.6. Of note, however, on presentation, the patient had a potassium of 2.9, which increased with supplementation to a highest level of 3.2; however, the patient has never really had a sustained elevation in potassium. On admission, also the patient had a sodium of 131, which improved progressively and currently is 146. CBC today showed WBC count of 11.6, hemoglobin of 8.8, MCV of 78.6, and platelet of 377. Urinalysis on admission March 11 showed yellow turbid urine with pH of 5.5, specific gravity of 1.032, urine protein of 70 mg/dL, positive blood with negative ketone, nitrite, bilirubin, urobilinogen. Leukocyte esterase was 75. Microscopy showed greater than 50 RBC and 11-20 WBC. Iron chemistry performed on admission showed serum iron of 14, TIBC of 298, and ferritin of 16.62. ASSESSMENT: 1. Severe hypokalemia. The patient has chronic recurrent hypokalemia and has been on supplementation prior to hospitalization. This most likely is related to poor oral intake. Absorption problem or urine wasting could be considered. 2. Metabolic acidosis: Most likely hyperchloremic acidosis. 3. Hypernatremia: Due to free water deficit from poor oral intake and saline infusion. 4. Iron deficiency anemia. 5. Hypocalcemia. Vitamin D deficiency is a concern. 6. Escherichia coli and methicillin-sensitive Staphylococcus aureus bacteremia: Source of infection is unclear but is thought to be due to GI or sources. Severe protein calorie malnutrition/cachexia. 7. Presumed colon cancer with metastasis to liver and lungs. PLAN: We will replete serum potassium with both IV and oral potassium chloride. We will also recheck serum magnesium and replete as needed. We will also get vitamin D level and start supplementation if indicated. We will stop normal saline infusion and encourage liberal oral intake, especially free water to correct hypernatremia. If potassium supplementation did not correct hypokalemia, we will evaluate for kidney wasting of sodium and potassium. Further recommendation to follow depending on hospital course and other diagnostic tests. Other treatment as per primary attending and other specialties. Many thanks for involving us in the care of this patient. We will follow along with you. Job ID: [id number]
[2019-03-18 10:51] LABS: Potassium 2.3 mmol/L (3.5-5.1)
--- NOTE | 2019-03-18 11:23 | PDOC.HOSPP ---
- Subjective Subjective: Seen and examined. Patient clinically unchanged. Nods head yes and no to questions. Denies pain. Breathing well on room air. Again with electrolyte abnormalities this morning. Will consult nephrology for electrolyte management. Critical hypokalemia limiting ability to perform invasive procedures at this time. - Objective Vital Signs & Weight: Vital Signs (12 hours) Temp Pulse Resp BP Pulse Ox 03/18/19 10:54 79 18 95 03/18/19 08:00 98.2 F 88 16 107/72 96 03/18/19 07:54 75 16 96 03/18/19 03:55 98.7 F 81 20 118/77 99 03/18/19 00:12 115/76 03/18/19 00:00 98.3 F 85 20 96 Weight Admit Weight 125 lb Weight 127 lb 1.6 oz Most Recent Monitor Data Heart Rate from ECG 83 NIBP 112/75 NIBP BP-Mean 87 Respiration from ECG 4 SpO2 93 I&O: 03/17/19 03/18/19 03/19/19 06:59 06:59 06:59 Intake Total 1543 Balance 1543 Result Diagrams: 03/18/19 04:27 03/18/19 09:54 Additional Labs: Accuchecks 03/18/19 03/17/19 03/17/19 06:19 23:49 18:32 POC Glucose 92 116 H 107 03/17/19 13:56 POC Glucose 83 Hospitalist ROS - Review of Systems All other systems reviewed; all pertinent +/- noted in HPI/Subj - Medication Medications: Active Medications Generic Name Dose Route Start Last Admin Trade Name Freq PRN Reason Stop Dose Admin Acetaminophen 650 mg 03/10/19 23:28 03/14/19 12:58 Tylenol MA 650 mg Q4H PRN Administration Headache/Fever/Mild Pain (1-3) Albuterol/Ipratropium 3 ml 03/17/19 15:00 03/18/19 10:54 Duoneb NEB 3 ml [id number] TORIBIO Administration Dextrose/Water 25 gm 03/12/19 09:45 03/13/19 00:11 Dextrose 50% SLOW IVP 25 gm PRN PRN Administration Hypoglycemia Enoxaparin Sodium 40 mg 03/14/19 09:00 03/18/19 09:12 Lovenox SC 40 mg 0900 TORIBIO Administration Fosphenytoin Sodium 100 mg/ 52 mls @ 100 mls/hr 03/11/19 22:00 03/18/19 06:39 Sodium Chloride IVPB 52 mls Q8HR TORIBIO Administration Ceftriaxone Sodium 2 gm/ 100 mls @ 200 mls/hr 03/14/19 08:15 03/18/19 08:39 Sodium Chloride IVPB 100 mls Q24HR TORIBIO Administration Ondansetron HCl 4 mg 03/10/19 23:28 03/14/19 18:03 Zofran IVP 4 mg Q6H PRN Administration Nausea/Vomiting Pantoprazole Sodium 40 mg 03/11/19 09:00 03/18/19 09:11 Protonix IVP 40 mg Q12HR TORIBIO Administration Potassium Chloride 40 meq 03/18/19 08:00 03/18/19 09:12 Klor-Con PO 03/18/19 12:01 40 meq Q2H TORIBIO Administration Sodium Bicarbonate 650 mg 03/14/19 09:00 03/18/19 09:11 Bicarbonate, Sodium PO 650 mg TID TORIBIO Administration - Exam General Appearance: NAD, awake alert Eye: anicteric sclera ENT: no oropharyngeal lesions, moist mucosa Neck: supple, symmetric, no lymphadenopathy Heart: no murmur, no gallops, no rubs Respiratory: no wheezes, no rales, no ronchi, normal chest expansion Gastrointestinal: soft, non-tender, non-distended, normal bowel sounds, no guarding, no rigidity Extremities: 1+ LE edema Skin: no lesions, no rashes Neurological: cranial nerve grossly intact, no new deficit, hemiplegia Musculoskeletal: generalized weakness Psychiatric: flat affect, somnolent Hosp A/P (1) Colonic mass Code(s): K63.89 - OTHER SPECIFIED DISEASES OF INTESTINE Status: Acute (2) Decubitus ulcer of sacral region, unstageable Code(s): L89.150 - PRESSURE ULCER OF SACRAL REGION, UNSTAGEABLE Status: Chronic (3) E coli bacteremia Code(s): R78.81 - BACTEREMIA Status: Resolved (4) Hypokalemia Code(s): E87.6 - HYPOKALEMIA Status: Acute (5) Liver masses Code(s): R16.0 - HEPATOMEGALY, NOT ELSEWHERE CLASSIFIED Status: Chronic (6) MSSA bacteremia Code(s): R78.81 - BACTEREMIA Status: Resolved (7) Microcytic anemia Code(s): D50.9 - IRON DEFICIENCY ANEMIA, UNSPECIFIED Status: Chronic (8) Pneumonia, aspiration Code(s): J69.0 - PNEUMONITIS DUE TO INHALATION OF FOOD AND VOMIT Status: Acute (9) Pulmonary nodules/lesions, multiple Status: Acute (10) Recurrent seizures Code(s): G40.909 - EPILEPSY, UNSP, NOT INTRACTABLE, WITHOUT STATUS EPILEPTICUS Status: Chronic (11) Respiratory failure, acute Code(s): J96.00 - ACUTE RESPIRATORY FAILURE, UNSP W HYPOXIA OR HYPERCAPNIA Status: Resolved (12) Seizure Code(s): R56.9 - UNSPECIFIED CONVULSIONS Status: Chronic (13) UTI (urinary tract infection) Status: Acute (14) CVA, old, hemiparesis Code(s): I69.359 - HEMIPLGA FOLLOWING CEREBRAL INFARCTION AFFECTING UNSP SIDE Status: Chronic - Plan Plan: Nephrology consultation, recommendations appreciated gastroenterology consultation, recommendations appreciated neurology consultation, recommendations appreciated colonoscopy was canceled secondary to hypokalemia. Replace potassium with IV and oral. Bowel prep via NG tube continue antibiotics breathing treatments antiepileptic drug per neurology continue other home medications as able Long-term prognosis for this patient is poor. Patient with possible metastatic: CA. Past history of cerebrovascular accident, recurrent seizures with episodes of status epilepticus. Once confirmation of metastatic cancer is confirmed, palliative care may be beneficial.
[2019-03-18] MEDS: Potassium Chloride 40 MEQ in Sodium Chloride 0.9% 250 ML 250 ML IVPB SCH (11:34)
--- NOTE | 2019-03-18 11:46 | PQF ---
DARYL NOLASCO IVANA [id number] [facility] [place] [id number] CLINICAL DOCUMENTATION IMPROVEMENT CLARIFICATION FORM: ICD-10 Updated PLEASE DO AN ADDENDUM TO THE PROGRESS NOTE WITH ANY DOCUMENTATION UPDATES OR ADDITIONS AND CARRY THROUGH TO DC SUMMARY. THANK YOU. DATE: 03/18 ATTN : DR. IVANA ARNOLD Please exercise your independent, professional judgment in responding to the clarification form. Clinical indicators are provided on the bottom of this form for your review. Please check appropriate box(s): Conflicting documentation was noted in the Medical Record, please clarify if patient is being treated/monitored for: [ XX ] STAGE III PRESSURE ULCER TO SACRUM [ ] DECUBITUS ULCER OF SACRAL REGION, UNSTAGEABLE [ ] SHALLOW STAGE II PRESACRAL ULCERATION [ ] Other diagnosis [ ] Unable to determine In addition, please specify: Present on Admission (POA): [ XX ] Yes [ ] No [ ] Unable to determine For continuity of documentation, please document condition throughout progress notes and discharge summary. Thank You. CLINICAL INDICATORS - SIGNS / SYMPTOMS/ LABS WOUND CARE CONSULT 03/13: STAGE III PU TO SACRUM PROGRESS NOTE (GREGORIA) 03/14 - PRESENT: DECUBITUS ULCER OF SACRAL REGION, UNSTAGEABLE INFECTIOUS DX CONSULT (COLBY) 03/14: PHYSICAL EXAM: SKIN - WITH AREAS OF SHALLOW STAGE II PRESACRAL ULCERATION RISKS: SEVERE PC MALNUTRITION (NEPHROLOGY CONSULT 03/18) R SIDED HEMIPARESIS (NEUROLOGY CONSULT 03/11) TREATMENT: WOUND CARE (03/13 - PRESENT) TURN Q2 HR (ACTIVITY MONITOR CARE ITEM Q4HR, 03/10 - PRESENT) WAFFLE MATTRESS (WOUND CARE DOCUMENTATION 03/13) THANK YOU! Marla (This form is maintained as a part of the permanent medical record) 2014 [employer], [employer]. All Rights Reserved Marla Mcdaniel RN, BSN [email or web address] Office: [phone] [facility]
--- NOTE | 2019-03-18 12:07 | PQF ---
DARYL NOLASCO ERIK [id number] [facility] [place] [id number] CLINICAL DOCUMENTATION IMPROVEMENT CLARIFICATION FORM: ICD-10 Updated PLEASE DO AN ADDENDUM TO THE PROGRESS NOTE WITH ANY DOCUMENTATION UPDATES OR ADDITIONS AND CARRY THROUGH TO DC SUMMARY. THANK YOU. DATE: 03/18 ATTN: DR. IVANA ARNOLD Please exercise your independent, professional judgment in responding to the clarification form. Clinical indicators are provided on the bottom of this form for your review. Please check appropriate box(es): [XX ] Sepsis due to: (Pna, UTI, gangrenous gall bladder, etc.) [ ] SIRS due to non-infectious process (please specify etiology) [ ] with organ dysfunction [ ] without organ dysfunction [ ] Localized infection without sepsis [ ] Other diagnosis [ ] Unable to determine In addition, please specify: Present on Admission (POA): [ XX ] Yes [ ] No [ ] Unable to determine For continuity of documentation, please document condition throughout progress notes and discharge summary. Thank You. CLINICAL INDICATORS - SIGNS / SYMPTOMS / LABS WBC 17.2 (LAB ON ADMIT, 03/10) H&P DOCUMENTATION 03/10 (ENOCH): ASSESSMENT: 3) GRAM-NEGATIVE BACTEREMIA , E COLI IN THE BLOOD; 4) MSSA IN THE BLOOD ATTENDING PN 03/11 - PRESENT (AURE/YVONNE/CATALINA): ASPIRATION PNEUMONIA; MSSA & E COLI BACTEREMIA NEUROLOGY CONSULT (03/11): IMPRESSION: 4) POSSIBLE SEPSIS (HIS LAB WORK SHOWED AN ELEVATED WHITE COUNT SUGGESTIVE OF POSSIBLE SEPSIS) RISKS: E COLI & MSSA BACTEREMIA (ATTENDING H&P 03/10; ATTENDING PN 03/11 - PRESENT) ASPIRATION PNEUMONIA (ATTENDING PN 03/11 - PRESENT) TREATMENT: IV ANTIBIOTICS (MAR - CEFEPIME 03/10-; VANCOMYCIN 03/10 - ; ROCEPHIN 03/14 - PRESENT) INFECTIOUS DX CONSULT (PHYSICIAN ORDER 03/14) THANK YOU! Marla (This form is maintained as a part of the permanent medical record) 2014 [employer]. All Rights Reserved Marla Mcdaniel, RN, BSN [email or web address] Office: [phone] MICHAEL
[2019-03-18 14:15] LABS: Anion Gap 14 mmol/L (10-20); BUN (Urea Nitrogen) Less than 4 mg/dL (8.4-25.7); Calc. Creatinine Clearance 137 mL/min (70-130); Calcium 8.1 mg/dL (7.8-10.44); Carbon Dioxide 21 mmol/L (22-29); Chloride 116 mmol/L (98-107); Estimated GFR-MDRD Greater than 90; Glucose 81 mg/dL (70-105); Sodium 148 mmol/L (136-145)
[2019-03-18 14:24] LABS: Potassium 2.5 mmol/L (3.5-5.1)
[2019-03-18] MEDS ORDERED: Ondansetron HCl/PF 4 MG/2 ML Vial IVP PRN (19:10)
[2019-03-18] MEDS ORDERED: Promethazine HCl 25 MG/ML VIAL IM PRN (19:10)
[2019-03-18] MEDS ORDERED: Promethazine HCl 25 MG/ML VIAL SLOW IVP PRN (19:10)
[2019-03-18] MEDS: D5 1/4 NS 1,000 ML IV SCH (22:01)
[2019-03-18] MEDS ORDERED: Lidocaine 1% PF 5 ML VIAL ONE (22:31)
[2019-03-18] MEDS ORDERED: ePHEDrine 50 MG/ML VIAL ONE (22:31)
[2019-03-18] MEDS ORDERED: PROPOFOL 200 MG/20 ML VIAL ONE (22:31)
--- NOTE | 2019-03-19 01:15 | OP ---
DATE OF PROCEDURE: 03/18/2019 PROCEDURE PERFORMED: Colonoscopy with biopsy. PREPROCEDURE DIAGNOSIS: CAT scan concerning for metastatic colon cancer. POSTPROCEDURE DIAGNOSIS: Near obstructing mass in the right colon, not passed with some bleeding and ulceration. Multiple biopsies obtained. RECOMMENDATIONS: 1. Await pathology. 2. Consider palliative care in light of other medical problems and near obstructing pattern with diffuse metastatic disease throughout the liver. ANESTHESIA: TIVA. DESCRIPTION OF PROCEDURE: After the patient was informed of the risks, benefits, and possible complications of endoscopy including perforation, reaction to medication, and aspiration, informed consent was obtained. The patient was brought to endoscopy suite, where he was sedated in gradual fashion. Once he was comfortable, rectal exam was performed which was normal. The scope was inserted into the anal canal through the colon to the right colon. The cecum could not be reached. A near obstructing mass was noted in the ascending colon. Multiple biopsies were obtained, submitted to Pathology. The scope was then removed. The colon desufflated. The prep was poor. No other lesions were seen. Retroflexion was not performed. The scope was removed. The patient was brought to recovery room in stable condition. Job ID: [id number]
[2019-03-19] MEDS: Fosphenytoin Sodium 100 MG in Sodium Chloride 0.9% 50 ML IVPB SCH ×3 (06:07→23:08)
[2019-03-19 07:54] LABS: Mean Corpuscular HGB CONC 29.6 g/dL (32.0-36.0); Mean Corpuscular Hemoglobin 22.8 pg (27.0-31.0); Mean Corpuscular Volume 77.1 fL (78.0-98.0); Mean Platelet Volume 8.9 fL (7.4-10.4); Platelet Count 357 thou/uL (130-400); RBC Distribution Width 25.2 % (11.5-14.5); Red Blood Cell (RBC) Count 3.92 mill/uL (4.70-6.10); White Blood Cell (WBC) Count 13.6 thou/uL (4.8-10.8)
[2019-03-19 08:05] LABS: Anion Gap 12 mmol/L (10-20); BUN (Urea Nitrogen) Less than 4 mg/dL (8.4-25.7); Calc. Creatinine Clearance 149 mL/min (70-130); Calcium 7.9 mg/dL (7.8-10.44); Carbon Dioxide 20 mmol/L (22-29); Chloride 115 mmol/L (98-107); Estimated GFR-MDRD Greater than 90; Glucose 99 mg/dL (70-105); Magnesium 1.5 mg/dL (1.6-2.6); Sodium 145 mmol/L (136-145)
[2019-03-19] MEDS ORDERED: Loperamide HCl 2 MG CAP PO PRN (08:06)
[2019-03-19] MEDS ORDERED: Sodium Chloride 0.65% Nasal 44 ML BOT EA NARE PRN (08:06)
[2019-03-19] MEDS ORDERED: Ondansetron ODT 4 MG TAB PO PRN (08:06)
[2019-03-19] MEDS ORDERED: Artificial Tears 18 DROP/0.9 ML EA EYE PRN (08:06)
[2019-03-19] MEDS ORDERED: Calcium Carbonate 500 MG ChewTAB PO PRN (08:06)
[2019-03-19] MEDS ORDERED: Senokot S 8.6-50 MG TAB PO PRN (08:06)
[2019-03-19] MEDS ORDERED: Loratadine 10 MG TAB PO PRN (08:06)
[2019-03-19] MEDS ORDERED: Zolpidem Tartrate 5 MG TAB PO PRN (08:06)
[2019-03-19] MEDS ORDERED: Cepastat Lozenges 1 LOZ PO PRN (08:06)
[2019-03-19] MEDS ORDERED: Bisacodyl 10 MG SUPP PR PRN (08:06)
[2019-03-19] MEDS ORDERED: hydrALAZINE 20 MG/ML VIAL SLOW IVP PRN (08:06)
[2019-03-19] MEDS ORDERED: Diabetic Tussin 200 MG/10 ML UDCUP PO PRN (08:06)
[2019-03-19 08:12] LABS: Potassium 2.1 mmol/L (3.5-5.1)
[2019-03-19] MEDS ORDERED: Magnesium Sulfate 3 GM in Sodium Chloride 0.9% 100 ML IVPB SCH (08:15)
[2019-03-19 08:21] LABS: Anisocytosis MODERATE=16-30 cells (100X) (0-5/hpf); Band 3 % (5-11); Eosinophils 5 % (0-10); Hypochromia MODERATE=16-30 cells (100X) (0-5/hpf); Lymphocytes 4 % (21-51); MDiff Complete? YES; Monocytes 7 % (0-10); Neutrophil 81 % (42-75); Platelet Morphology Comment Appears Adequate; Polychromasia SLIGHT = 2-3 cells (100X) (0-2/hpf); Schistocytes SLIGHT = 2-5 cells (100X) (0-1/hpf); Spherocytes SLIGHT = 1-5 cells (100X) (None Seen)
[2019-03-19] MEDS ORDERED: D5 1/4 NS 1,000 ML IV SCH (08:41)
[2019-03-19 08:52] LABS: Phosphorus 1.9 mg/dL (2.3-4.7)
[2019-03-19] MEDS ORDERED: Magnesium Sulfate 4 GM in Sodium Chloride 0.9% 250 ML 250 ML IVPB SCH (09:00)
[2019-03-19] MEDS ORDERED: Ergocalciferol 1.25 MG(50,000 UNITS) CAP PO SCH (09:00)
[2019-03-19] MEDS ORDERED: Potassium Chloride 40 MEQ in Premix Bag 1 BAG IVPB SCH (09:00)
[2019-03-19] MEDS ORDERED: Potassium Phosphate 30 MMOL in Sodium Chloride 0.9% 500 ML IVPB SCH (09:00)
[2019-03-19] MEDS: D5 1/4 NS 1,000 ML IV SCH (09:26)
[2019-03-19] MEDS: cefTRIAXone\\ROCEPHIN 2 GM in Sodium Chloride 0.9% 100 ML IVPB SCH (09:27)
[2019-03-19] MEDS: Enoxaparin Sodium 40 MG/0.4 ML SYRINGE SC SCH (09:28)
[2019-03-19] MEDS: Potassium Chloride 20 MEQ TAB PO SCH ×4 (09:29→15:27)
[2019-03-19] MEDS: Sodium Bicarbonate Tab 325 MG TAB PO SCH ×3 (09:29→21:49)
[2019-03-19] MEDS: Pantoprazole 40 MG VIAL IVP SCH ×2 (09:31→21:49)
--- NOTE | 2019-03-19 09:46 | PRG ---
DATE OF SERVICE: 03/19/2019 SERVICE: Nephrology. SUBJECTIVE: A 58-year-old aphasic male patient admitted from [facility] due to seizure and mental status change as well as respiratory failure. Nephrology is seeing the patient for electrolyte derangements including persistent hypokalemia. The patient was found to have a near obstructing ascending colon mass with ulcerations on colonoscopy performed yesterday, March 18, 2019. The patient remains nonverbal. OBJECTIVE: VITAL SIGNS: Temperature 97.5, pulse 86, respiratory rate 20, SpO2 of 100 on room air, and blood pressure is 112/63. GENERAL: Cachectic, chronically ill-looking male, in no obvious distress. Afebrile, anicteric. HEENT: Normocephalic, atraumatic. CARDIOVASCULAR: Regular rhythm and rate with normal heart sounds 1 and 2. Systolic murmur noted. RESPIRATORY: Fair air entry bilaterally with few transmitted breath sounds. No obvious crackle or rhonchi was appreciated. GI: Full, soft, nontender, nondistended with hypoactive bowel sounds. EXTREMITIES: Right upper limb fixed flexion deformity noted. Other extremities are grossly normal, though atrophic. 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 Obey simple commands. Nods and waves with greeting. The patient is aphasic from prior CVA. Cranial nerves 2 through 12 are grossly intact except left facial nerve palsy, upper motor neuron type noted. Right hemiparesis also noted. DIAGNOSTIC DATA: Chemistry today showed sodium 145, potassium 2.1, chloride 115, CO2 of 20, BUN less than 4, creatinine 0.44, glucose 99, calcium 7.9, and magnesium 1.5. 25-hydroxy vitamin D is 6.4. ASSESSMENT: 1. Severe persistent hyponatremia: This is due to poor oral intake as well as renal losses due to hypomagnesemia. 2. Hypomagnesemia. 3. Hyponatremia: Due to free water deficit: Improved with hypertonic solution. 4. Vitamin D deficiency. 5. Severe protein-calorie malnutrition. 6. Seizure disorder. 7. Metastatic colon cancer. PLAN: 1. We will replete serum magnesium with 4 g of magnesium sulfate. 2. We will also give oral and IV potassium chloride. The patient will obviously have total body loss of potassium, so we may need to give a liter or more to provide to replete body losses. 3. We will also start vitamin D supplementation. 4. Other treatment as per primary attending. 5. Overall, prognosis is bleak in this patient. Absence of relative makes it even difficult. I sincerely believe this person should proceed on hospice care given that he has stage IV at least of cancer. We will consult Ethics to help in decision making as well as palliative care. We will continue to follow along with you. We will repeat electrolytes later in the day with a view to adjust in electrolyte replacement plan. Job ID: [id number]
[2019-03-19] MEDS ORDERED: Potassium Chloride 10 MEQ/100 ML PREMIX BAG IVPB SCH (10:00)
[2019-03-19] MEDS: Potassium Chloride 40 MEQ in Sodium Chloride 0.9% 250 ML 250 ML IVPB SCH (10:23)
--- NOTE | 2019-03-19 13:23 | PDOC.HOSPP ---
- Subjective Encounter Date: 03/19/19 Encounter Time: 07:30 Subjective: Patient seen and examined. No new complaints. No overnight events pt is non verbal but he understands and able to nod his head and answers question that way. - Objective Vital Signs & Weight: Vital Signs (12 hours) Temp Pulse Resp BP Pulse Ox 03/19/19 11:27 97.5 F L 90 20 94/57 L 96 03/19/19 10:32 72 16 95 03/19/19 08:00 97.5 F L 86 20 112/63 96 03/19/19 07:45 74 16 95 03/19/19 04:00 98.5 F 77 16 105/70 95 Weight Admit Weight 125 lb Weight 127 lb 1.6 oz Most Recent Monitor Data Heart Rate from ECG 83 NIBP 112/75 NIBP BP-Mean 87 Respiration from ECG 4 SpO2 93 I&O: 03/18/19 03/19/19 03/20/19 06:59 06:59 06:59 Intake Total 1543 1000 300 Balance 1543 1000 300 Result Diagrams: 03/19/19 07:39 03/19/19 07:39 Additional Labs: Accuchecks 03/19/19 03/19/19 03/19/19 12:08 06:11 00:22 POC Glucose 113 H 107 108 Radiology Reviewed by me: Yes EKG Reviewed by me: Yes Hospitalist ROS - Review of Systems ENT: denies: ear pain, ear discharge, nose pain, nose discharge, nose congestion , mouth pain, mouth swelling, throat pain, throat swelling, other Respiratory: denies: cough, dry, shortness of breath, hemoptysis, SOB with excertion, pleuritic pain, sputum, wheezing, other Cardiovascular: denies: chest pain, palpitations, orthopnea, paroxysmal noc. dyspnea, edema, light headedness, other Gastrointestinal: denies: nausea, vomiting, abdominal pain, diarrhea, constipation, melena, hematochezia, other Genitourinary: denies: dysuria, frequency, incontinence, hematuria, retention, other Musculoskeletal: denies: neck pain, shoulder pain, arm pain, back pain, hand pain, leg pain, foot pain, other - Medication Medications: Active Medications Generic Name Dose Route Start Last Admin Trade Name Freq PRN Reason Stop Dose Admin Acetaminophen 650 mg 03/10/19 23:28 03/14/19 12:58 Tylenol MO 650 mg Q4H PRN Administration Headache/Fever/Mild Pain (1-3) Albuterol/Ipratropium 3 ml 03/17/19 15:00 03/19/19 10:32 Duoneb NEB 3 ml [id number] TORIBIO Administration Dextrose/Water 25 gm 03/12/19 09:45 03/13/19 00:11 Dextrose 50% SLOW IVP 25 gm PRN PRN Administration Hypoglycemia Enoxaparin Sodium 40 mg 03/14/19 09:00 03/19/19 09:28 Lovenox SC 40 mg 0900 TORIBIO Administration Ergocalciferol 1.25 mg 03/19/19 09:00 03/19/19 11:19 Drisdol PO 1.25 mg Q7DAYS TORIBIO Administration Fosphenytoin Sodium 100 mg/ 52 mls @ 100 mls/hr 03/11/19 22:00 03/19/19 06:07 Sodium Chloride IVPB 52 mls Q8HR TORIBIO Administration Ceftriaxone Sodium 2 gm/ 100 mls @ 200 mls/hr 03/14/19 08:15 03/19/19 09:27 Sodium Chloride IVPB 100 mls Q24HR TORIBIO Administration Potassium Chloride 40 meq/ 270 mls @ 67.5 mls/hr 03/18/19 10:00 03/19/19 10: 23 Sodium Chloride IVPB Not Given 1000 TORIBIO Dextrose/Sodium Chloride 1,000 mls @ 125 mls/hr 03/19/19 08:41 03/19/19 09:25 D5 1/4 Ns IV 03/19/19 16:40 1,000 mls .Q8H TORIBIO Administration Potassium Phosphate 30 mmol/ 510 mls @ 83.3 mls/hr 03/19/19 09:00 03/19/19 09 :56 Sodium Chloride IVPB 03/19/19 15:00 510 mls NOW TORIBIO Administration Ondansetron HCl 4 mg 03/10/19 23:28 03/14/19 18:03 Zofran IVP 4 mg Q6H PRN Administration Nausea/Vomiting Pantoprazole Sodium 40 mg 03/11/19 09:00 03/19/19 09:31 Protonix IVP 40 mg Q12HR TORIBIO Administration Potassium Chloride 40 meq 03/19/19 08:45 09/25/19 11:19 K-Dur PO 03/19/19 14:46 40 meq Q2H TORIBIO Administration Potassium Chloride 10 meq 03/19/19 10:00 03/19/19 13:13 Kcl IVPB 10 meq Q6H TORIBIO Administration Sodium Bicarbonate 650 mg 03/14/19 09:00 03/19/19 09:29 Bicarbonate, Sodium PO 650 mg TID TORIBIO Administration Sodium Chloride 10 ml 03/19/19 09:00 03/19/19 09:55 Flush - Normal Saline IVF 10 ml Q12HR TORIBIO Administration - Exam General Appearance: NAD, ill appearing Eye: PERRL, anicteric sclera ENT: normocephalic atraumatic, no oropharyngeal lesions Neck: supple, symmetric, no JVD, no thyromegaly Heart: RRR, no murmur, no gallops, no rubs Respiratory: CTAB, no wheezes, no rales, no ronchi Gastrointestinal: soft, non-tender, non-distended, normal bowel sounds Extremities: no cyanosis, no clubbing Skin: normal turgor Neurological - other findings: he has residual weakness, spasticity and aphasia Musculoskeletal: normal tone, normal strength Psychiatric: normal affect, normal behavior Hosp A/P (1) UTI (urinary tract infection) Status: Acute (2) Pneumonia, aspiration Code(s): J69.0 - PNEUMONITIS DUE TO INHALATION OF FOOD AND VOMIT Status: Acute (3) Abnormal blood electrolyte level Code(s): E87.8 - OTH DISORDERS OF ELECTROLYTE AND FLUID BALANCE, NEC Status: Acute (4) Colon carcinoma metastatic to multiple sites Code(s): C18.9 - MALIGNANT NEOPLASM OF COLON, UNSPECIFIED Status: Acute (5) CVA, old, hemiparesis Code(s): I69.359 - HEMIPLGA FOLLOWING CEREBRAL INFARCTION AFFECTING UNSP SIDE Status: Chronic (6) Protein-calorie malnutrition, moderate Code(s): E44.0 - MODERATE PROTEIN-CALORIE MALNUTRITION Status: Chronic (7) Dyslipidemia Code(s): E78.5 - HYPERLIPIDEMIA, UNSPECIFIED Status: Chronic (8) Decubitus ulcer of sacral region, unstageable Code(s): L89.150 - PRESSURE ULCER OF SACRAL REGION, UNSTAGEABLE Status: Chronic (9) Microcytic anemia Code(s): D50.9 - IRON DEFICIENCY ANEMIA, UNSPECIFIED Status: Chronic (10) Seizure Code(s): R56.9 - UNSPECIFIED CONVULSIONS Status: Chronic (11) E coli bacteremia Code(s): R78.81 - BACTEREMIA Status: Resolved (12) MSSA bacteremia Code(s): R78.81 - BACTEREMIA Status: Resolved (13) Respiratory failure, acute Code(s): J96.00 - ACUTE RESPIRATORY FAILURE, UNSP W HYPOXIA OR HYPERCAPNIA Status: Resolved - Plan old records reviewed/req, continue antibiotics, 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 medication reviewed as above, symptomatic treatment
[2019-03-19 17:10] LABS: Albumin 2.4 g/dL (3.5-5.0); Anion Gap 11 mmol/L (10-20); BUN (Urea Nitrogen) Less than 4 mg/dL (8.4-25.7); Calc. Creatinine Clearance 146 mL/min (70-130); Calcium 7.6 mg/dL (7.8-10.44); Carbon Dioxide 19 mmol/L (22-29); Chloride 115 mmol/L (98-107); Estimated GFR-MDRD Greater than 90; Glucose 120 mg/dL (70-105); Phosphorus 2.5 mg/dL (2.3-4.7); Potassium 2.3 mmol/L (3.5-5.1); Sodium 143 mmol/L (136-145)
--- NOTE | 2019-03-19 19:52 | PRG ---
DATE OF SERVICE: 03/19/2019 REASON FOR CONSULTATION: Abnormal GI imaging indicative of an ascending colonic mass/metastatic disease. SUBJECTIVE: The patient underwent a colonoscopy yesterday, and while the colonic preparation was poor, adequate visualization was achieved to reach the ascending colon, and in which a near-obstructing mass was seen in the ascending colon. Multiple biopsies were obtained with pathology still pending at this time, but with the high likelihood of malignancy. This was expressed to the patient today, and he was given options for surgery versus chemotherapy versus hospice, and at this time, he would like to think about his potential options. Otherwise, he states he is doing well with no other problems or complaints at this time. Currently, he denies any nausea, vomiting, fevers, chills, abdominal pain, or GI bleeding. However, per nursing staff, he did have darker colored liquid stools during the course of the day that were strongly concerning for the presence of C diff, was placed on contact precautions. Infectious stool studies are pending at this time. OBJECTIVE: VITAL SIGNS: Temperature 97.7, pulse 68, blood pressure 114/80, respiratory rate 16, and saturating 98% on room air. GENERAL: The patient is lying in bed, in no acute distress. Alert and oriented x2 with responses difficult to discern given his aphasic status, but able to nod his head affirmatively and negatively appropriately to questioning. CARDIOVASCULAR: Regular rate and rhythm with a 3/6 systolic murmur best heard at the left lower sternal border in the midclavicular line. RESPIRATORY: Clear to auscultation bilaterally. ABDOMEN: Normoactive bowel sounds. Soft, nontender, nondistended. EXTREMITIES: No cyanosis, clubbing, or edema. LABORATORY DATA: CBC with a white blood cell count of 13.6, hemoglobin 9, hematocrit 30.2, platelets 357. Chemistry with a sodium of 143, potassium 2.3, chloride 115, CO2 19, BUN less than 4, creatinine 0.45, glucose 120. C diff stool studies pending at this time. IMAGING DATA: A colonoscopy was performed on March 18, 2019, which showed a near-obstructing mass within the ascending colon with multiple biopsies obtained. However, the colonic prep was poor with no further lesions seen. ASSESSMENT AND PLAN: The patient is a 58-year-old male with past medical history of cerebral vascular accident, seizures, legal blindness, and history of pneumonia, presenting with polymicrobial bacteremia and abnormal GI imaging consistent with metastatic disease from a colonic primary malignancy. 1. Bacteremia/abnormal GI imaging/colonic malignancy. a. The patient initially presented with blood cultures positive for both Escherichia coli and methicillin-susceptible Staph aureus, reason concern for the origin of a polymicrobial bacteremia. CT scan of the abdomen and pelvis was performed on March 14, 2019, which showed numerous irregular masses within the liver as well as an irregular mass lesion within the proximal ascending colon concerning for colonic malignancy. He subsequently underwent colonoscopy on March 18, 2019, which confirmed the finding of a near-obstructive colonic mass within the ascending colon with biopsy still pending at this time. Discussion with the patient was made concerning the prognosis of this diagnosis, and at this time, he wishes to think about this potential options prior to making a decision. RECOMMENDATIONS: 1. If the patient does decide to proceed with aggressive management, I would recommend consultation of Surgical/Medical Oncology for evaluation of possible debulking of this large ascending colon mass as well as chemotherapy options related to metastatic disease. 2. However, palliative/hospice care is a more reasonable option at this time given the patient's medical status/comorbidities in light of metastatic disease. 3. Antibiotic therapy per Infectious Disease Service. 4. Pain control per Primary Team. We will sign off at this time. Please call with any questions. Job ID: [id number]
[2019-03-19] MEDS: Potassium Chloride 10 MEQ/100 ML PREMIX BAG IVPB SCH (21:50)
[2019-03-20] MEDS: Potassium Chloride 10 MEQ/100 ML PREMIX BAG IVPB SCH ×2 (01:58→07:08)
[2019-03-20 05:15] LABS: Band 6 % (5-11); Hemoglobin 8.3 g/dL (14.0-18.0); Hypochromia MODERATE=16-30 cells (100X) (0-5/hpf); Lymphocytes 9 % (21-51); MDiff Complete? YES; Mean Corpuscular HGB CONC 29.8 g/dL (32.0-36.0); Mean Corpuscular Hemoglobin 23.3 pg (27.0-31.0); Mean Corpuscular Volume 78.1 fL (78.0-98.0); Mean Platelet Volume 9.5 fL (7.4-10.4); Microcytosis MODERATE=15-30 cells (100X) (0-5/hpf); Monocytes 3 % (0-10); Neutrophil 82 % (42-75); Ovalocytes SLIGHT = 2-5 cells (100X) (0-1/hpf); Platelet Count 324 thou/uL (130-400); Platelet Morphology Comment Appears Adequate; RBC Distribution Width 25.2 % (11.5-14.5); Red Blood Cell (RBC) Count 3.55 mill/uL (4.70-6.10); White Blood Cell (WBC) Count 10.9 thou/uL (4.8-10.8)
[2019-03-20 05:24] LABS: Anion Gap 13 mmol/L (10-20); BUN (Urea Nitrogen) Less than 4 mg/dL (8.4-25.7); Calc. Creatinine Clearance 149 mL/min (70-130); Calcium 7.4 mg/dL (7.8-10.44); Carbon Dioxide 18 mmol/L (22-29); Chloride 115 mmol/L (98-107); Estimated GFR-MDRD Greater than 90; Glucose 104 mg/dL (70-105); Phosphorus 1.9 mg/dL (2.3-4.7); Potassium 3.3 mmol/L (3.5-5.1); Sodium 143 mmol/L (136-145)
[2019-03-20] MEDS: Fosphenytoin Sodium 100 MG in Sodium Chloride 0.9% 50 ML IVPB SCH (06:04)
[2019-03-20] MEDS: Potassium Chloride 40 MEQ in Sodium Chloride 0.9% 250 ML 250 ML IVPB SCH (07:10)
[2019-03-20] MEDS ORDERED: Potassium Phosphate 30 MMOL in Sodium Chloride 0.9% 500 ML IVPB SCH (07:30)
[2019-03-20] MEDS ORDERED: PHOS-NAK 1 PKT PACK PO SCH (09:00)
[2019-03-20] MEDS ORDERED: Polyethylene Glycol 3350 17 GM Packet PO SCH (09:00)
[2019-03-20] MEDS: Ferrous Sulfate 325 MG TAB PO SCH (09:28)
[2019-03-20] MEDS: K-Phos Neutral 250 MG TAB PO SCH ×2 (09:28→16:56)
[2019-03-20] MEDS: Potassium Citrate 10 MEQ TAB PO SCH ×3 (09:29→16:56)
[2019-03-20] MEDS: Famotidine 20 MG TAB PO SCH ×2 (09:29→21:23)
[2019-03-20] MEDS: Folic Acid 1 MG TAB PO SCH (09:29)
[2019-03-20] MEDS: Phenytoin 50 MG Chewable Tablet PO SCH ×3 (09:30→21:23)
[2019-03-20] MEDS: Enoxaparin Sodium 40 MG/0.4 ML SYRINGE SC SCH (09:30)
[2019-03-20] MEDS: Sodium Bicarbonate Tab 325 MG TAB PO SCH ×3 (09:30→21:23)
--- NOTE | 2019-03-20 09:58 | PDOC.HOSPP ---
- Subjective Encounter Date: 03/20/19 Encounter Time: 07:00 non-verbal Subjective: Patient seen and examined. No overnight events, pt has diarrhoea today - Objective Vital Signs & Weight: Vital Signs (12 hours) Temp Pulse Resp BP Pulse Ox 03/20/19 07:46 99 03/20/19 07:42 98.9 F 95 20 122/78 97 03/20/19 06:20 89 14 99 03/20/19 00:00 98.2 F 72 19 151/80 H 97 Weight Admit Weight 125 lb Weight 127 lb 1.6 oz Most Recent Monitor Data Heart Rate from ECG 83 NIBP 112/75 NIBP BP-Mean 87 Respiration from ECG 4 SpO2 93 I&O: 03/19/19 03/20/19 03/21/19 06:59 06:59 06:59 Intake Total 1000 2806 300 Output Total 200 Balance 1000 2606 300 Result Diagrams: 03/20/19 04:44 03/20/19 04:44 Additional Labs: Accuchecks 03/20/19 03/20/19 03/19/19 06:14 02:20 18:57 POC Glucose 93 101 134 H 03/19/19 12:08 POC Glucose 113 H EKG Reviewed by me: Yes Hospitalist ROS - Review of Systems ENT: denies: ear pain, ear discharge, nose pain, nose discharge, nose congestion , mouth pain, mouth swelling, throat pain, throat swelling, other Respiratory: denies: cough, dry, shortness of breath, hemoptysis, SOB with excertion, pleuritic pain, sputum, wheezing, other Cardiovascular: denies: chest pain, palpitations, orthopnea, paroxysmal noc. dyspnea, edema, light headedness, other Gastrointestinal: reports: diarrhea. denies: nausea, vomiting, abdominal pain, constipation, melena, hematochezia, other Genitourinary: denies: dysuria, frequency, incontinence, hematuria, retention, other Musculoskeletal: denies: neck pain, shoulder pain, arm pain, back pain, hand pain, leg pain, foot pain, other - Medication Medications: Active Medications Generic Name Dose Route Start Last Admin Trade Name Freq PRN Reason Stop Dose Admin Acetaminophen 650 mg 03/10/19 23:28 03/14/19 12:58 Tylenol [place] 650 mg Q4H PRN Administration Headache/Fever/Mild Pain (1-3) Cholecalciferol 1,000 units 03/20/19 09:00 03/20/19 09:29 Vitamin D3 PO 1,000 units DAILY TORIBIO Administration Dextrose/Water 25 gm 03/12/19 09:45 03/13/19 00:11 Dextrose 50% SLOW IVP 25 gm PRN PRN Administration Hypoglycemia Enoxaparin Sodium 40 mg 03/14/19 09:00 03/20/19 09:30 Lovenox SC 40 mg 09 TORIBIO Administration Ergocalciferol 1.25 mg 03/19/19 09:00 03/19/19 11:19 Drisdol PO 1.25 mg Q7DAYS TORIBIO Administration Famotidine 20 mg 03/20/19 09:00 03/20/19 09:29 Pepcid PO 20 mg BID TORIBIO Administration Ferrous Sulfate 325 mg 03/20/19 08:00 03/20/19 09:28 Feosol PO 325 mg QAM-WM TORIBIO Administration Folic Acid 1 mg 03/20/19 09:00 03/20/19 09:29 Folvite PO 1 mg DAILY TORIBIO Administration Potassium Phosphate 30 mmol/ 510 mls @ 83.3 mls/hr 03/20/19 07:30 03/20/19 08 :09 Sodium Chloride IVPB 03/20/19 13:38 510 mls NOW TORIBIO Administration Ondansetron HCl 4 mg 03/10/19 23:28 03/14/19 18:03 Zofran IVP 4 mg Q6H PRN Administration Nausea/Vomiting Phenytoin Sodium 100 mg 03/20/19 09:00 03/20/19 09:30 Dilantin Chewable PO 100 mg TID TORIBIO Administration Phosphorus 500 mg 03/20/19 08:00 03/20/19 09:28 Kphos Neutral PO 500 mg BID-WM TORIBIO Administration Polyethylene Glycol 17 gm 03/20/19 09:00 03/20/19 09:30 Miralax PO 17 gm DAILY TORIBIO Administration Potassium Citrate 10 meq 03/20/19 08:00 03/20/19 09:29 Urocit K PO 10 meq TID-WM TORIBIO Administration Sodium Bicarbonate 650 mg 03/14/19 09:00 03/20/19 09:30 Bicarbonate, Sodium PO 650 mg TID TORIBIO Administration Sodium Chloride 10 ml 03/19/19 09:00 03/20/19 07:11 Flush - Normal Saline IVF Not Given Q12HR TORIBIO - Exam General Appearance: NAD, awake alert Eye: PERRL, anicteric sclera ENT: normocephalic atraumatic, no oropharyngeal lesions Neck: supple, symmetric, no JVD, no thyromegaly Heart: RRR, no murmur, no gallops, no rubs Respiratory: CTAB, no wheezes, no rales, no ronchi Gastrointestinal: soft, non-tender, non-distended, normal bowel sounds Extremities: no cyanosis, no clubbing, no edema Skin: normal turgor, no lesions Neurological - other findings: residual weakness on right side Psychiatric: normal affect, normal behavior Hosp A/P (1) Abnormal blood electrolyte level Code(s): E87.8 - OTH DISORDERS OF ELECTROLYTE AND FLUID BALANCE, NEC Status: Acute Plan: hypokalemia, hypophosphatemia (2) Colon carcinoma metastatic to multiple sites Code(s): C18.9 - MALIGNANT NEOPLASM OF COLON, UNSPECIFIED Status: Acute Plan: lymph node, lung and liver mets (3) CVA, old, hemiparesis Code(s): I69.359 - HEMIPLGA FOLLOWING CEREBRAL INFARCTION AFFECTING UNSP SIDE Status: Chronic (4) Protein-calorie malnutrition, moderate Code(s): E44.0 - MODERATE PROTEIN-CALORIE MALNUTRITION Status: Chronic (5) Dyslipidemia Code(s): E78.5 - HYPERLIPIDEMIA, UNSPECIFIED Status: Chronic (6) Decubitus ulcer of sacral region, unstageable Code(s): L89.150 - PRESSURE ULCER OF SACRAL REGION, UNSTAGEABLE Status: Chronic (7) Microcytic anemia Code(s): D50.9 - IRON DEFICIENCY ANEMIA, UNSPECIFIED Status: Chronic (8) Seizure Code(s): R56.9 - UNSPECIFIED CONVULSIONS Status: Chronic (9) E coli bacteremia Code(s): R78.81 - BACTEREMIA Status: Resolved (10) MSSA bacteremia Code(s): R78.81 - BACTEREMIA Status: Resolved (11) Respiratory failure, acute Code(s): J96.00 - ACUTE RESPIRATORY FAILURE, UNSP W HYPOXIA OR HYPERCAPNIA Status: Resolved (12) UTI (urinary tract infection) Status: Resolved Plan: finished treatment (13) Pneumonia, aspiration Code(s): J69.0 - PNEUMONITIS DUE TO INHALATION OF FOOD AND VOMIT Status: Resolved - Plan old records reviewed/req, social science manager, DVT proph w/lovenox, DVT proph w/SCDs Consults: Palliative Care continue rocephin, replace potassium, phosphorus and magnesium, repeat labs tomorrow, notified pt about test result, palliative care on case, group home prognosis is very poor, at this point we will address his final discharge placement, hopping for hospice at care home. medication reviewed as above, symptomatic treatment 925- today check stool for c-diff, today start potassium citrate 10 mec TID, replace potassium phosphate, continue sodium bicarbonate, palliative care on board, discharge planning, repeat labs tomorrow. overall stable. medication reviewed as above, symptomatic treatment. DC protonix and change to PO pepcid, add ferrous sulfate and folic acid. change dilantin PO and check level tomorrow , add Kphos PO
--- NOTE | 2019-03-20 10:15 | PRG ---
DATE OF SERVICE: 03/20/2019 SERVICE: Nephrology. SUBJECTIVE: A 58-year-old male with prior CVA complicated with right-sided hemiparesis and seizure disorder, admitted due to seizure episode and respiratory failure. Nephrology is seeing the patient for electrolyte derangements. The patient also was found to have metastatic colon cancer with metastases to the liver and lungs. The patient at baseline is bed bound, and there is no family around for further discussion. Oral intake remained suboptimal. OBJECTIVE: VITAL SIGNS: Temperature 98.9, pulse 95, respiratory rate 20, SpO2 of 97% on room air, and blood pressure is 122/78. GENERAL: Cachectic male, in no obvious distress. Afebrile. Anicteric. Acyanotic. HEENT: Normocephalic and atraumatic. CARDIOVASCULAR: Regular rhythm and rate with normal heart sounds. Systolic murmur noted. RESPIRATORY: Fair air entry bilaterally with some transmitted breath sounds. GI: Flat, soft, nontender, nondistended with diminished bowel sounds. EXTREMITIES: Grossly normal looking except fixed flexion deformity of right upper extremity. BUSINESS CENTER REPRESENTATIVE: Conscious and awake. The patient is aphasic. Nods to questions. DIAGNOSTIC DATA: BMP showed sodium 143, potassium 3.3, chloride 115, CO2 of 18, BUN less than 4, creatinine is 0.44, glucose is 104, calcium is 7.4, magnesium is 2.0, and phosphorus is 1.9. CBC showed WBC count of 10.9, hemoglobin of 8.3, MCV of 78, and platelet of 324. ASSESSMENT: 1. Hyponatremia: Resolved. 2. Hypokalemia: Severe, improving, but still below reference range. 3. Hypophosphatemia. 4. Metabolic acidosis: This is hyperchloremic from IV fluid therapy with normal saline and potassium chloride supplementation. 5. Severe protein-calorie malnutrition. 6. Vitamin D deficiency. 7. Metastatic colon cancer. 8. Prior cerebrovascular accident with right hemiparesis and aphasia. PLAN: 1. Replete serum potassium and phosphorus with potassium phosphate. 2. Nutritional rehabilitation to continue. 3. Continue vitamin D supplementation. 4. The patient's prognosis overall is poor and this is not made better by the father. The patient is aphasic and there is no relative available. Ethics has been consulted. I think the patient will be best served with hospice service as he is not in a position to get Surgery or chemotherapy. 5. Many thanks for involving us in the care of this patient. We will continue to follow along with you. Job ID: [id number]
[2019-03-20] MEDS: HYDROcodone/Acetaminophen 5/325 mg Tablet PO PRN (11:53)
[2019-03-21 05:43] LABS: Anion Gap 12 mmol/L (10-20); BUN (Urea Nitrogen) 4 mg/dL (8.4-25.7); Calc. Creatinine Clearance 164 mL/min (70-130); Calcium 7.5 mg/dL (7.8-10.44); Carbon Dioxide 21 mmol/L (22-29); Chloride 113 mmol/L (98-107); Dilantin 13.7 ug/mL (10.0-20.0); Estimated GFR-MDRD Greater than 90; Glucose 77 mg/dL (70-105); Sodium 143 mmol/L (136-145)
[2019-03-21 05:46] LABS: Potassium 2.7 mmol/L (3.5-5.1)
[2019-03-21 05:47] LABS: Phosphorus 2.5 mg/dL (2.3-4.7)
[2019-03-21] MEDS ORDERED: Potassium Chloride 40 MEQ in Premix Bag 1 BAG IVPB SCH (06:00)
[2019-03-21 06:02] LABS: Anisocytosis MODERATE=16-30 cells (100X) (0-5/hpf); Band 11 % (5-11); Elliptocytes SLIGHT = 2-5 cells (100X) (0-1/hpf); Eosinophils 3 % (0-10); Hemoglobin 8.5 g/dL (14.0-18.0); Hypochromia SLIGHT = 6-15 cells (100X) (0-5/hpf); Lymphocytes 9 % (21-51); MDiff Complete? YES; Mean Corpuscular Hemoglobin 23.5 pg (27.0-31.0); Mean Corpuscular Volume 78.2 fL (78.0-98.0); Mean Platelet Volume 10.1 fL (7.4-10.4); Monocytes 4 % (0-10); Neutrophil 73 % (42-75); Platelet Count 298 thou/uL (130-400); Red Blood Cell (RBC) Count 3.61 mill/uL (4.70-6.10); White Blood Cell (WBC) Count 9.4 thou/uL (4.8-10.8)
[2019-03-21] MEDS ORDERED: Potassium Chloride 10 MEQ TAB PO SCH (08:00)
[2019-03-21] MEDS: Ferrous Sulfate 325 MG TAB PO SCH (09:41)
[2019-03-21] MEDS: Enoxaparin Sodium 40 MG/0.4 ML SYRINGE SC SCH (09:41)
[2019-03-21] MEDS: Famotidine 20 MG TAB PO SCH (09:42)
[2019-03-21] MEDS: Phenytoin 50 MG Chewable Tablet PO SCH ×2 (09:42→14:25)
[2019-03-21] MEDS: Potassium Citrate 10 MEQ TAB PO SCH ×2 (09:42→12:02)
[2019-03-21] MEDS: K-Phos Neutral 250 MG TAB PO SCH (09:42)
[2019-03-21] MEDS: Folic Acid 1 MG TAB PO SCH (09:42)
[2019-03-21] MEDS: Sodium Bicarbonate Tab 325 MG TAB PO SCH ×2 (09:43→14:25)
--- NOTE | 2019-03-21 10:43 | PDOC.HOSPP ---
- Subjective Encounter Date: 03/21/19 Encounter Time: 10:00 Subjective: Patient seen and examined. No new complaints. No overnight events - Objective Vital Signs & Weight: Vital Signs (12 hours) Temp Pulse Resp BP Pulse Ox 03/21/19 07:59 78 16 100 03/21/19 07:50 99 03/21/19 07:40 99.0 F 79 20 112/80 99 03/21/19 03:49 99.2 F 82 14 100/77 98 03/21/19 00:41 83 16 98 03/21/19 00:00 97.6 F 84 16 141/70 H 94 L Weight Admit Weight 125 lb Weight 127 lb 1.6 oz Most Recent Monitor Data Heart Rate from ECG 83 NIBP 112/75 NIBP BP-Mean 87 Respiration from ECG 4 SpO2 93 I&O: 03/20/19 03/21/19 03/22/19 06:59 06:59 06:59 Intake Total 2806 900 500 Output Total 200 Balance 2606 900 500 Result Diagrams: 03/21/19 05:01 03/21/19 05:02 Additional Labs: Accuchecks 03/21/19 03/20/19 03/20/19 05:47 23:58 18:00 POC Glucose 74 87 96 03/20/19 11:37 POC Glucose 87 EKG Reviewed by me: Yes (nsr) Hospitalist ROS - Review of Systems ENT: denies: ear pain, ear discharge, nose pain, nose discharge, nose congestion , mouth pain, mouth swelling, throat pain, throat swelling, other Respiratory: denies: cough, dry, shortness of breath, hemoptysis, SOB with excertion, pleuritic pain, sputum, wheezing, other Cardiovascular: denies: chest pain, palpitations, orthopnea, paroxysmal noc. dyspnea, edema, light headedness, other Gastrointestinal: denies: nausea, vomiting, abdominal pain, diarrhea, constipation, melena, hematochezia, other Genitourinary: denies: dysuria, frequency, incontinence, hematuria, retention, other Musculoskeletal: denies: neck pain, shoulder pain, arm pain, back pain, hand pain, leg pain, foot pain, other - Medication Medications: Active Medications Generic Name Dose Route Start Last Admin Trade Name Freq PRN Reason Stop Dose Admin Acetaminophen 650 mg 03/10/19 23:28 03/14/19 12:58 Tylenol [place] 650 mg Q4H PRN Administration Headache/Fever/Mild Pain (1-3) Hydrocodone Bitart/Acetaminophen 1 tab 03/19/19 08:06 03/20/19 11:53 [place] 5/325 PO 1 tab Q4H PRN Administration Moderate Pain (4-6) Albuterol/Ipratropium 3 ml 03/20/19 13:00 03/21/19 07:59 Duoneb NEB 3 ml [id number] TORIBIO Administration Cholecalciferol 1,000 units 03/20/19 09:00 03/21/19 09:42 Vitamin D3 PO 1,000 units DAILY TORIBIO Administration Dextrose/Water 25 gm 03/12/19 09:45 03/13/19 00:11 Dextrose 50% SLOW IVP 25 gm PRN PRN Administration Hypoglycemia Enoxaparin Sodium 40 mg 03/14/19 09:00 03/21/19 09:41 Lovenox SC 40 mg 0900 TORIBIO Administration Ergocalciferol 1.25 mg 03/19/19 09:00 03/19/19 11:19 Drisdol PO 1.25 mg Q7DAYS TORIBIO Administration Famotidine 20 mg 03/20/19 09:00 03/21/19 09:42 Pepcid PO 20 mg BID TORIBIO Administration Ferrous Sulfate 325 mg 03/20/19 08:00 03/21/19 09:41 Feosol PO 325 mg QAM-[facility] Administration Folic Acid 1 mg 03/20/19 09:00 03/21/19 09:42 Folvite PO 1 mg DAILY TORIBIO Administration Guaifenesin 200 mg 03/19/19 08:06 03/20/19 11:52 Robitussin Sf PO 200 mg Q4H PRN Administration Cough Ondansetron HCl 4 mg 03/10/19 23:28 03/14/19 18:03 Zofran IVP 4 mg Q6H PRN Administration Nausea/Vomiting Phenytoin Sodium 100 mg 03/20/19 09:00 03/21/19 09:42 Dilantin Chewable PO 100 mg TID TORIBIO Administration Phosphorus 500 mg 03/20/19 08:00 03/21/19 09:42 Kphos Neutral PO 500 mg BID-WM TORIBIO Administration Potassium Chloride 20 meq 03/21/19 08:00 03/21/19 09:42 Klor-Con 10 PO 03/21/19 17:01 20 meq BID-WM TORIBIO Administration Potassium Citrate 10 meq 03/20/19 08:00 03/21/19 09:42 Urocit K PO 10 meq TID-WM TORIBIO Administration Sodium Bicarbonate 650 mg 03/14/19 09:00 03/21/19 09:43 Bicarbonate, Sodium PO 650 mg TID TORIBIO Administration Sodium Chloride 10 ml 03/19/19 09:00 03/21/19 09:41 Flush - Normal Saline IVF 10 ml Q12HR TORIBIO Administration Sodium Chloride 10 ml 03/19/19 06:08 03/20/19 21:29 Flush - Normal Saline IVF 10 ml PRN PRN Administration Saline Flush - Exam General Appearance: NAD, awake alert Eye: PERRL, anicteric sclera ENT: normocephalic atraumatic, no oropharyngeal lesions Neck: supple, symmetric, no JVD Heart: RRR, no rubs Respiratory: CTAB, no wheezes, no rales Gastrointestinal: soft, non-tender, non-distended Extremities: no cyanosis, no clubbing Skin: normal turgor, no lesions Neurological: hemiplegia, speech deficit Psychiatric: normal affect, normal behavior Hosp A/P (1) Abnormal blood electrolyte level Code(s): E87.8 - OTH DISORDERS OF ELECTROLYTE AND FLUID BALANCE, NEC Status: Acute (2) Colon carcinoma metastatic to multiple sites Code(s): C18.9 - MALIGNANT NEOPLASM OF COLON, UNSPECIFIED Status: Acute (3) CVA, old, hemiparesis Code(s): I69.359 - HEMIPLGA FOLLOWING CEREBRAL INFARCTION AFFECTING UNSP SIDE Status: Chronic (4) Protein-calorie malnutrition, moderate Code(s): E44.0 - MODERATE PROTEIN-CALORIE MALNUTRITION Status: Chronic (5) Dyslipidemia Code(s): E78.5 - HYPERLIPIDEMIA, UNSPECIFIED Status: Chronic (6) Decubitus ulcer of sacral region, unstageable Code(s): L89.150 - PRESSURE ULCER OF SACRAL REGION, UNSTAGEABLE Status: Chronic (7) Microcytic anemia Code(s): D50.9 - IRON DEFICIENCY ANEMIA, UNSPECIFIED Status: Chronic (8) Seizure Code(s): R56.9 - UNSPECIFIED CONVULSIONS Status: Chronic (9) E coli bacteremia Code(s): R78.81 - BACTEREMIA Status: Resolved (10) MSSA bacteremia Code(s): R78.81 - BACTEREMIA Status: Resolved (11) Respiratory failure, acute Code(s): J96.00 - ACUTE RESPIRATORY FAILURE, UNSP W HYPOXIA OR HYPERCAPNIA Status: Resolved (12) UTI (urinary tract infection) Status: Resolved (13) Pneumonia, aspiration Code(s): J69.0 - PNEUMONITIS DUE TO INHALATION OF FOOD AND VOMIT Status: Resolved - Plan old records reviewed/req, social media analyst continue rocephin, replace potassium, phosphorus and magnesium, repeat labs tomorrow, notified pt about test result, palliative care on case, jail prognosis is very [facility], at this point we will address his final discharge placement, hopping for hospice at detention. medication reviewed as above, symptomatic treatment 925- today check stool for c-diff, today start potassium citrate 10 mec TID, replace potassium phosphate, continue sodium bicarbonate, palliative care on board, discharge planning, repeat labs tomorrow. overall stable. medication reviewed as above, symptomatic treatment. DC protonix and change to PO pepcid, add ferrous sulfate and folic acid. change dilantin PO and check level tomorrow , add Kphos PO 03/21/19- continue to replace potassium, plan to discharge to NH with hospice.
--- NOTE | 2019-03-21 11:21 | DIS ---
DATE OF ADMISSION: 03/10/2019 DATE OF DISCHARGE: 03/21/2019 PRIMARY CARE PHYSICIAN: [facility] Call admission. DISCHARGE DISPOSITION: care home with hospice. PRIMARY DISCHARGE DIAGNOSES: 1. Status epilepticus on admission. 2. Acute respiratory failure with hypoxia. 3. Gram-negative elsa E coli bacteremia. 4. MSSA bacteremia. 5. Abnormal electrolytes with hypokalemia, hypomagnesemia, and hypophosphatemia. 6. Metastatic colon cancer with metastasis to lung, liver, and lymph node. 7. Protein calorie malnutrition, moderate. 8. Urinary tract infection. Blood culture positive for MSSA. Repeat blood culture negative. C diff negative. SECONDARY DISCHARGE DIAGNOSES: 1. Hypertension. 2. Dyslipidemia. 3. Old cerebrovascular accident with residual weakness and aphasia. 4. Decubitus ulcer of sacral region present on admission. 5. Chronic microcytic anemia. 6. Physical deconditioning. LABORATORY STUDIES: WBC 9.4, hemoglobin 8.5, and platelets are 298. Sodium 143, potassium 2.7, BUN 4, creatinine 0.40, and calcium 7.5. Please keep this all laboratory test result whatever I discussed in the significant labs. RADIOLOGICAL INVESTIGATION: Chest x-ray on admission showed cardiomegaly. Chest, abdomen, and pelvis CT scan showed pulmonary nodules, liver metastasis, lymph node metastasis and colon cancer. Echocardiography showed normal EF. Colon biopsy report came back as positive for invasive adenocarcinoma, moderately differentiated. DISCHARGE MEDICATIONS: 1. Aspirin 81 mg daily. 2. Lipitor 40 mg daily. 3. Namenda 5 mg b.i.d. 4. Zoloft 50 mg daily. 5. Drisdol 1.25 mg every week. 6. Vitamin D3 1000 units p.o. daily. 7. Pepcid 20 mg b.i.d. 8. Ferrous sulfate 325 mg daily. 9. Folic acid 1 mg daily. 10. Dilantin 100 mg t.i.d. 11. Potassium chloride 20 mEq p.o. b.i.d. 12. Urocit-K 10 mEq p.o. t.i.d. 13. Sodium bicarbonate 325 mg p.o. t.i.d. CONTRAINDICATION: None. CODE STATUS: Full code. INPATIENT ACCOUNT ADMINISTRATOR: Pulmonary and Critical Care group were managing ventilator. Neurology was consulted for seizure. Nephrology managing for electrolytes. Gastroenterology was consulted for colon mass. TEST RESULT PENDING ON DISCHARGE: None. ALLERGIES: NO KNOWN DRUG ALLERGIES. DISCHARGE PLAN: Posthospital, the patient will be discharged to snf with hospice. HOSPICE COURSE: A 58-year-old male, who has history of stroke with residual right-sided weakness and aphasia, who was at [facility] with hospice care, who was brought to emergency room for new onset seizure. He was having status epilepticus and for airway protection, the patient was intubated in the emergency room and subsequently admitted to ICU. Neurology was consulted for seizure and Pulmonology was consulted for vent management. Eventually, this patient was extubated. The patient was also having sepsis. He was having MSSA bacteremia and E coli bacteremia, which was treated with empiric antibiotic therapy. The patient had diarrhea, which was treated symptomatically and stool for infection workup came back negative. Repeat blood culture and urine culture remained negative. Stool for C diff is also negative. The patient has finished antibiotic therapy while in hospital and he does not have any further sepsis. His white count also improved. Dr. Covarrubias was also consulted while in hospital. He had significant electrolyte abnormality, which was aggressively treated while in hospital. On admission CT chest, abdomen, and pelvis showed metastatic colon cancer and that is why Gastroenterology was consulted and they did colonoscopy and biopsy and pathology report came back as a moderately differentiated invasive adenocarcinoma. This patient is back to his normal level and he is able to tell yes or no with nodding his head and he is interested in going back to [facility] with hospice and comfort care. This patient's long-term prognosis is very poor. He is not a good candidate for chemotherapy for his colon cancer based on overall his condition. At this point, the patient will continue to get above-mentioned medication at snf and he will have Keflex for additional seven days and Florastor 250 mg daily for 7 days. Our community case manager is working on his placement. I have done paperwork for discharge done and discharge medication reconciliation done. For his seizure, we started Dilantin. As the patient still has hypokalemia, we are replacing potassium upon discharge as well. This patient's long-term prognosis is very poor. Total time spent on discharge day, more than 30 minutes. Job ID: [id number]
[2019-03-21] MEDS ORDERED: Potassium Chloride 40 MEQ in Sodium Chloride 0.9% 250 ML 250 ML IVPB SCH ×2 (11:45→12:00)
--- NOTE | 2019-03-21 11:50 | PRG ---
DATE OF SERVICE: 03/21/2019 SERVICE: Nephrology. SUBJECTIVE: A 58-year-old residential resident, admitted due to recurrent seizure and respiratory failure. The patient is being followed up by Nephrology for multiple electrolyte derangements including persistent hypokalemia. The patient also was found to have invasive adenocarcinoma of the colon with metastasis to the lungs and liver. Oral intake remained suboptimal. The patient denied any new complaint. OBJECTIVE: VITAL SIGNS: Temperature 99, pulse 78, respiratory rate 16, SpO2 of 100% on room air, blood pressure is 112/80. GENERAL: Cachectic, chronically ill-looking male, in no obvious distress. Afebrile. Anicteric. Acyanotic. HEENT: Normocephalic and atraumatic. Oral mucosa is moist. CARDIOVASCULAR: Regular rhythm and rate with normal heart sounds 1 and 2. RESPIRATORY: Fair air entry bilaterally with few transmitted breath sounds. GI: Flat, soft, nontender, nondistended with normal bowel sounds. EXTREMITIES: Diffuse atrophy of all the extremities as well as right upper extremity fixed flexion deformity noted. No edema or erythema appreciated. SHOP ASSISTANT: Conscious and alert. The patient is aphasic, but seems to comprehend and obey some commands. Moves all extremities, but weakly on the right side. DIAGNOSTIC DATA: CBC showed WBC count of 9.4, hemoglobin of 8.5, MCV of 78.2, platelets of 298. BMP showed sodium 143, potassium 2.7, chloride 113, CO2 of 21, BUN 4, creatinine 0.4, glucose 77, calcium 7.5. Phosphorus is 2.5. ASSESSMENT: 1. Persistent hypokalemia: Most likely due to poor oral intake as well as depleted body store from prolonged malnutrition and poor oral intake as well as renal wasting from hypomagnesemia. 2. Hypomagnesemia. 3. Hypophosphatemia. 4. Severe protein-calorie malnutrition. 5. Invasive colon cancer with metastasis to the liver and lungs. 6. Acute respiratory failure, resolved. 7. Recurrent seizures: Resolved with adjustment of medication. 8. Microcytic anemia. PLAN: 1. Replete body stores of potassium with potassium chloride. We will give both IV and p.o. We will also replete serum magnesium. We will, in fact, start magnesium supplementation with magnesium oxide 400 mg p.o. b.i.d. 2. [place] oral intake advised. 3. Recheck electrolytes and supplement as needed. Overall prognosis is poor. The patient will be best served by hospice care. Can be discharged from Nephrology point of view with potassium supplementation. Job ID: [id number]
[2019-03-21] MEDS: Potassium Chloride 20 MEQ TAB PO SCH ×2 (12:02→14:25)
[2019-03-21 12:04] VITALS: BP 98/72; TEMP 99.7
[2019-03-21] MEDS: HYDROcodone/Acetaminophen 5/325 mg Tablet PO PRN (12:07)
[2019-03-21 15:01] LABS: Potassium 3.4 mmol/L (3.5-5.1)
[2019-03-21] MEDS ORDERED: Magnesium Oxide 400 MG TAB PO SCH (21:00)
== END 2019-03-21 15:03 | DRG 871 ==
LOC: CCU 22:50 → 2SE 03-13 16:33
PROVIDERS: ADMIT Internal Medicine; ATTEND Internal Medicine
PROC: 0BH17EZ Insertion of Endotracheal Airway into Trachea, Via Natural or Artificial Opening (ICD-10-PCS; 2019-03-10)
PROC: 5A1945Z Respiratory Ventilation, 24-96 Consecutive Hours (ICD-10-PCS; 2019-03-10)
PROC: 0DBF8ZX Excision of Right Large Intestine, Via Natural or Artificial Opening Endoscopic, Diagnostic (ICD-10-PCS; principal; 2019-03-18)
DX: A41.51 Sepsis due to Escherichia coli [E. coli] (principal); L89.153 Pressure ulcer of sacral region, stage 3; J96.01 Acute respiratory failure with hypoxia; J69.0 Pneumonitis due to inhalation of food and vomit; C78.7 Secondary malignant neoplasm of liver and intrahepatic bile duct; C78.00 Secondary malignant neoplasm of unspecified lung; C77.9 Secondary and unspecified malignant neoplasm of lymph node, unspecified; N39.0 Urinary tract infection, site not specified; E44.0 Moderate protein-calorie malnutrition; Z68.1 Body mass index [BMI] 19.9 or less, adult; I69.951 Hemiplegia and hemiparesis following unspecified cerebrovascular disease affecting right dominant side; E87.2 Acidosis; E87.0 Hyperosmolality and hypernatremia; E87.1 Hypo-osmolality and hyponatremia; C18.2 Malignant neoplasm of ascending colon; A49.01 Methicillin susceptible Staphylococcus aureus infection, unspecified site; G40.901 Epilepsy, unspecified, not intractable, with status epilepticus; R73.9 Hyperglycemia, unspecified; E87.6 Hypokalemia; E83.42 Hypomagnesemia; E83.39 Other disorders of phosphorus metabolism; E78.5 Hyperlipidemia, unspecified; I10 Essential (primary) hypertension; D50.9 Iron deficiency anemia, unspecified; I69.920 Aphasia following unspecified cerebrovascular disease; E83.51 Hypocalcemia; H54.8 Legal blindness, as defined in USA; Z51.5 Encounter for palliative care
CPT/HCPCS: 36415; 36416; 71045; 71260; 74018; 74177; 80048; 80053; 80185; 80202; 81001; 82040; 82274; 82306; 82728; 82805; 83540; 83550; 83630; 83735; 84100; 85007; 85025; 85027; 87040; 87045; 87046; 87324; 87328; 87329; 87427; 87449; 88305; 90471; 90732; 93005; 93010; 93306; 94002; 94003; 94640; C9113; G0009; J0692; J0696; J1650; J2001; J2405; J2704; J3370; J3475; J3480; J3490; J7042; J7050; J7620; Q2009; Q9966